=== PATIENT | male | born 1990 | race Caucasian/White ===

== ENCOUNTER 2023-11-18 09:25 | Outpatient (OUT) | payer MEDICARE, MEDICAID, SELFPAY ==
[2023-11-18 10:40] LABS: Basophils Absolute Auto 0.1 10^3/uL (0.0-0.1); Basophils Percent Auto 1.3 % (0.2-2.0); Eosinophils Absolute Auto 0.1 10^3/uL (0.0-0.7); Eosinophils Percent Auto 0.9 % (0.9-7.0); Hemoglobin 14.2 g/dL (14.0-18.0); Immature Granulocytes Abs Auto 0.04 10^3/uL (0.00-0.03); Immature Granulocytes Pct Auto 0.7 % (0.0-0.5); Lymphocytes Absolute Auto 1.5 10^3/uL (1.2-3.8); Lymphocytes Percent Auto 26.6 % (20.5-60.0); Mean Corpuscular HGB Conc 33.8 g/dL (29.9-35.2); Mean Corpuscular Hemoglobin 30.8 pg (25.9-34.0); Mean Corpuscular Volume 91.1 fL (80.0-94.0); Monocytes Absolute Auto 0.5 10^3/uL (0.3-0.8); Monocytes Percent Auto 9.6 % (1.7-12.0); Neutrophils Absolute Auto 3.4 10^3/uL (1.4-6.5); Neutrophils Percent Auto 60.9 % (43.0-75.0); Platelet Count 282 10^3/uL (150-450); Red Blood Count 4.61 10^6/uL (4.70-6.10); Red Cell Distribution Width 14.1 % (11.0-15.0); White Blood Count 5.6 10^3/uL (4.0-11.0)
== END 2023-11-18 09:26 | disposition home or self-care (01) ==
LOC: PST 09:29
PROVIDERS: PCP Family Medicine; Visit Provider Otolaryngology
DX: Z01.812 Encounter for preprocedural laboratory examination (principal); H61.23 Impacted cerumen, bilateral
CPT/HCPCS: 85025

== ENCOUNTER 2023-11-29 06:46 | Day surgery (SDC) | payer MEDICARE, MEDICAID, SELFPAY ==
[2023-11-18 10:28] VITALS: BP 110/67; PULSE 68; RESP 20; TEMP 36.8; O2SAT 100; BMI 24.6
[2023-11-29] VITALS (9 sets, daily range): BP systolic 95–108; BP diastolic 53–79; PULSE 54–66; RESP 12–20; TEMP 36.1–36.3; O2SAT 96–100
--- NOTE | 2023-11-29 | OP_ITS ---
OPERATION DATE: 11/29/2023 SURGEON: Libby Becker M.D. PREOPERATIVE DIAGNOSIS: Cerumen impaction. POSTOPERATIVE DIAGNOSIS: Cerumen impaction. PROCEDURE: Bilateral removal of cerumen. ANESTHESIA: General mask. COMPLICATIONS: None. FINDINGS: Bilateral cerumen impactions and right tympanostomy tube in place and patent. INDICATIONS: This 33-year-old man with Down syndrome presented with a cerumen impaction, and he was unable to tolerate debridement in the office. PROCEDURE: Patient identified in the holding area and taken back to the OR where he was placed in the supine position. After induction of general anesthesia by mask, the right ear was approached with the otomicroscope and cerumen cleaned from the canal using a cerumen curette. Attention was turned to the left ear and the same procedure performed. The patient was the awakened and taken to the recovery room in good condition. SUZANNA
--- OUTSIDE RECORDS SUMMARY | 2023-11-29 06:49 | XMS_ITS | CCD ---
Author Name Unknown Address [address] [place] [address] Organization [facility] Care Team Providers Care Drafter Cartographic Name Role Phone UNKNOWN, PROVIDER Unavailable Unavailable UNKNOWN, PROVIDER Unavailable Unavailable SELF, REFERRED Unavailable Unavailable SELF, REFERRED Unavailable Unavailable NC Unavailable Unavailable UNKNOWN, PROVIDER Unavailable Unavailable NC Unavailable Unavailable BRYN COTO Unavailable Unavailable Unavailable Primary Care Provider Unavailabl e PROVIDER, UNKNOWN Attending Unavailable PROVIDER, UNKNOWN Admitting Unavailable Darrin Rose Primary Care Provider UnavailDARRIN Lora Referring Unavailable DARRIN ROSE Primary Care Unavailable TIMPAYAL, DR HOANG Consulting Unavailable TIMMIS, DR HOANG Attending Unavailable TIMMIS, DR HOANG Admitting Unavailable [facility] Primary Care Unava ilable NATE II, AUBREY Consulting Unavailable FILUTZE, SHANTEL Consulting Unavailable TIMMIS, DR HOANG Admitting Unavailable TIMMIS, DR HOANG Consulting Unavailable TIMMIS, DR HOANG Attending Unavailable REQUEST, DR NONE LISTED Primary Care Unavaila MIKAELA Marti Consulting Unavailable TIMMIS, DR HOANG Admitting Unavailable TIMMIS, DR HOANG Consulting Unavailable TIMMIS, DR HOANG Attending Unavailable [facility] Primary Care Unava ilable KARLI DAVIS Consulting Unavailable TIMMIS, DR HOANG Admitting Unavailable TIMMIS, DR HOANG Consulting Unavailable TIMMIS, DR HOANG Attending Unavailable REQUEST, DR NONE LISTED Primary Care Unavaila ble SUSAN, KARLI Consulting Unavailable Unavailable Primary Care Provider Unavailjeremias e LIBBY GAITAN Referring Unavailable DARRIN ROSE Primary Care Unavailable Darrin Rose MD Primary Care Provider LIBBY GAITAN Attending Unavailable DARRIN ROSE Referring Unavailable LIBBY GAITAN Attending Unavailable Allergies Allergy Classification Reported Allergen(s) Allergy Type Date of Onset Reaction(s) Facility (2 sources) cefaclor; Translations: [CECLOR] Drug Allergy 7 [facility] (6 sources) Cefaclor; Translations: [CEFACLOR] Drug Allergy 7 Hives, Rash [facility] (6 sources) Cephalosporins (Antibiotic); Translations: [CEPHALOSPORINS] Propensity to adverse reactions to drug 3 Rash [facility] Medications Current Medications Medication Drug Class(es) Dates Sig (Normalized) Sig (Original) Multiple Vitamins-Minerals (THERAPEUTIC MULTIVITAMIN-MINERALS ) tablet (1 source) take 1 tablet by filiberto th once daily Multiple Vitamins-Minerals (THERAPEUTIC MULTIVITAMIN-MINERALS ) tablet Take 1 tablet by mouth daily 0 Active therapeutic multivitamin-minerals (Theragran-M) tablet (4 sources) take 1 tablet by filiberto th in the morning therapeutic multivitamin-minerals (Theragran-M) tablet Take 1 tablet by mouth in the morning. 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, unspecified] Onset: 2 09-01-2023 Chronic Immunity disorders (1 source) Di Ag's syndrome; 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] Onset: 2 Chronic Other congenital anomalies (3 sources) Marfan's syndrome, unspecified; 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, unspecified] Onset: 7 Chronic Other congenital anomalies (5 sources) Anomaly of chromosome pair 21; 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, unspecified] Onset: 8 07-25-2018 Chronic Other congenital anomalies (1 source) Down syndrome, unspecified; Translations: [DOWN SYNDROME UNSPECIFIED] Onset: 2 Chronic Other ear and sense organ disorders (4 sources) Bilateral hearing loss; Translations: [Unspecified hearing loss, bilateral] Onset: 3 09-01-2023 Chronic Other ear and sense organ disorders (4 sources) Hearing loss; Translations: [Unspecified hearing loss, unspecified ear] Onset: 2 09-01-2023 Chronic Other ear and sense organ disorders (5 sources) Impacted cerumen, right ear; Translations: [IMPACTED CERUMEN RIGHT EAR] Onset: 3 Episodic Other ear and sense organ disorders (2 sources) Impacted cerumen of bilateral ears; Translations: [Impacted cerumen, bilateral] 11-02-2023 Episodic Other gastrointestinal disorders (1 source) Dysphagia, pharyngoesophageal phase; Translations: [Dysphagia, pharyngoesophageal phase] Onset: 4 Episodic Other gastrointestinal disorders (2 sources) Oropharyngeal dysphagia; Translations: [Dysphagia, oropharyngeal phase] 11-02-2023 Episodic Otitis media and related conditions (6 sources) Other disorders following mastoidectomy, left ear; Translations: [Other disorders following mastoidectomy, bilateral ears] Onset: 2 Episodic Unclassified (2 sources) Unknown / UNK(Unknown) Onset: 7 Past or Other Problems Problem Classification Problem Date Documented Da te Episodic/Chronic Aortic; peripheral; and visceral artery aneurysms (1 source) Aortic root dilatation; Translations: [Thoracic aortic ectasia] Onset: 11-21-2017 Resolved: 07-25-2018 07-25-2018 Chronic Other congenital anomalies (1 source) Marfan's syndrome; Translations: [Marfan's syndrome, unspecified] Onset: 11-21-2017 Resolved: 07-19-2018 07-19-2018 Chronic Other ear and sense organ disorders (1 source) Otorrhea, right ear; Translations: [OTORRHEA RIGHT EAR] Onset: 03-29-2022 Episodic Other ear and sense organ disorders (4 sources) Impacted cerumen; Translations: [Impacted cerumen, unspecified ear] Onset: 06-29-2022 Resolved: 09-01-2023 09-01-2023 Episodic Viral infection (4 sources) Plantar wart of left foot; Translations: [Plantar wart] Onset: 06-29-2022 09-01-2023 Episodic Results Test Name Value Interpretation Reference Range Facility FL SWALLOW MOTILITY FUNCTION on 10-05-2023 FL SWALLOW MOTILITY FUNCTION FL SWALLOW MOTILITY FUNCTION CLINICAL INFORMATION: Difficulty swallowing. Oropharyngeal dysphagia TECHNIQUE/PROCEDURE: Speech pathologist was present for the duration of the procedure. Various consistencies of barium containing substances were provided with lateral view. Reference air kerma: 2.2 mGy IMPRESSION: 1. No evidence of aspiration. Intermittent trace penetration with thin consistency by straw. 2. For further details and diet recommendations please refer to speech pathology report. Finalized by Sohail Chanel MD on 10/05/2023 9:55 AM Normal [facility] CBC AUTO DIFFon 11-04-2022 BASO # 0.1 103/ul Normal 0.0-0.1 [facility] Comment on above: Performed By: #### C BC #### [facility] [address] [place] [address] Dr. Amanda Dillon Basophils/100 WBC (Bld) 1.4 % Normal 0.2-2.0 [facility] Comment on above: Performed By: #### C BC #### [facility] [address] [place] [address] Dr. Amanda Dillon EO # 0.0 103/ul Normal 0.0-0.7 [facility] Comment on above: Performed By: #### C BC #### [facility] [address] [address] [address] Amanda Dillon Eosinophils/100 WBC (Bld) 0.6 % Critically low 0.9-7.0 [facility] Comment on above: Performed By: #### C BC #### [facility] [address] [place] [address] Dr. Amanda Dillon Erythrocyte distribution width (RBC) [Ratio] 14.2 % Normal 11.0-15.0 [facility] Comment on above: Performed By: #### C BC #### [facility] [address] [place] [address] Dr. Amanda Dillon Hematocrit (Bld) [Volume fraction] 42.6 % Normal 42.0-54.0 [facility] Comment on above: Performed By: #### C BC #### [facility] [address] [place] [address] Dr. Amanda Dillon Hemoglobin (Bld) [Mass/Vol] 14.9 g/dL Normal 14.0-18.0 [facility] Comment on above: Performed By: #### C BC #### [facility] [address] [place] [address] Dr. Amanda Dillon IG # 0.07 10e3/ul Critically high 0.00-0.03 [facility] Comment on above: Performed By: #### C BC #### [facility] [address] [place] [address] Dr. Amanda Dillon IG % 1.1 % Critically high 0.0-0.5 [facility] Comment on above: Performed By: #### C BC #### [facility] [address] [place] [address] Dr. Amanda Dillon LYMPH # 1.5 103/ul Normal 1.2-3.8 [facility] Comment on above: Performed By: #### C BC #### [facility] [address] [place] [address] Dr. Amanda Dillon Lymphocytes/100 WBC (Bld) 23.5 % Normal 20.5-60.0 [facility] Comment on above: Performed By: #### C BC #### [facility] [address] [place] [address] Dr. Amanda Dillon MANUAL DIFF REQ NO Normal [facility] Comment on above: Performed By: #### C BC #### [facility] [address] [place] [address] Dr. Amanda Dillon MCH (RBC) [Entitic mass] 31.1 pg Normal 25.9-34.0 [facility] Comment on above: Performed By: #### C BC #### [facility] [address] [place] [address] Dr. Amanda Dillon MCHC (RBC) [Mass/Vol] 35.0 g/dL Normal 29.9-35.2 [facility] Comment on above: Performed By: #### C BC #### [facility] [address] [address] [address] Amanda Dillon MCV (RBC) [Entitic vol] 88.9 fL Normal 80.0-94.0 [facility] Comment on above: Performed By: #### C BC #### [facility] [address] [address] [address] Amanda Dillon MONO # 0.6 103/ul Normal 0.3-0.8 [facility] Comment on above: Performed By: #### C BC #### [facility] [address] [address] [address] Amanda Dillon Monocytes/100 WBC (Bld) 9.1 % Normal 1.7-12.0 [facility] Comment on above: Performed By: #### C BC #### [facility] [address] [address] [address] Amanda Dillon NEUT # 4.2 103/ul Normal 1.4-6.5 [facility] Comment on above: Performed By: #### C BC #### [facility] [address] [address] [address] Amanda Dillon Neutrophils/100 WBC (Bld) 64.3 % Normal 43.0-75.0 [facility] Comment on above: Performed By: #### C BC #### [facility] [address] [address] [address] Amanda Dillon Platelet mean volume (Bld) [Entitic vol] 9.1 fL Critically low 9.5-13.5 [facility] Comment on above: Performed By: #### C BC #### [facility] [address] [address] [address] Amanda Dillon PLT 267 103/ul Normal 150-450 [facility] Comment on above: Performed By: #### C BC #### [facility] [address] [address] [address] Amanda Dillon RBC 4.79 106/ul Normal 4.70-6.10 [facility] Comment on above: Performed By: #### C BC #### [facility] [address] [place], [place] [address] Dr. Amanda Dillon WBC 6.5 103/ul Normal 4.0-11.0 [facility] Comment on above: Performed By: #### C BC #### [facility] [address] [place], [place] [address] Dr. 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 Normal cardiac structure. 2. Normal cardiac dimensions with normal biventricular systolic function. 3. No evidence of aortic root dilation 4. No obvious evidence of congenital cardiac abnormalities. Compared to the previous study, no significant change seen. Signature Procedure Type of Study Pediatric/Congenital TTE Procedure:2D Limited/Doppler/Color Flow Map. Procedure Date Date: 07/13/2022tart: 01:55 PM Comments: Darrin Rose (PCP) Aortic root dilation Technical Quality: Good visualization Probe:5.5 MHZ. Patient Status: Outpatient HR: 62 bpmBP: 122/69 mmHg Findings Situs/Connections Normal cardiac and visceral situs. Pulmonary Veins Normal pulmonary venous return. Systemic Veins Normal systemic venous return. Atrial Septum No obvious evidence of atrial level shunting. Atria Normal atrial sizes. AV Valves Normal atrioventricular valve without stenosis. Trivial tricuspid valve regurgitation. Ventricular Septum No obvious evidence of ventricular level shunting. Ventricles Normal ventricular sizes, without evidence of hypertrophy. The biventricular systolic function is normal. Aortic Valve Normal aortic valve without evidence of stenosis and/or regurgitation. Pulmonic Valve Normal semilunar valve without stenosis or significant regurgitation. Coronary Arteries Both origins of the coronaries are visualized (previous study). Aorta Left-sided aortic arch with normal branching and no evidence of coarctation (previous study). Pulmonary Arteries The main and branch pulmonary arteries are normal sized without peripheral stenosis (previous study). Miscellaneous Normal aortic root dimension. Valves Tricuspid Valve Peak velocity:0.66 m/s Pulmonic Valve Peak velocity: 1 m/s Peak gradient: 4 mmHg Mitral Valve Peak gradient: 3.84 mmHg Peak E-Wave: 0.98 m/s Aortic Valve Annulus:18 mm Peak velocity: 0.91 m/s Peak gradient: 3.31 mmHg Structures Left Atrium LA dimension: 21 mm Left Ventricle Diastolic dimension: 41 mm Systolic dimension: 28 mm Septum diastolic: 8 mm PW diastolic: 7 mm EF calculated: 66.5 % FS: 31.7 % LVEDV:68.4 ml EF Teicholz:60.2 % LVESV:22.9 ml LVEDV index:40 ml/m^2 LVESV index:13 ml/m^2 Right Ventricle Diastolic dimension: 23 mm MHPN STV CPACS Mary Anne Heller MD - 07/13/2022 Pediatric/Congenital Transthoracic Echocardiography (TTE) Report Demographics Patient Name LANEY Guthrie Date of Study 07/13/2022 Date of 1990 Gender Male Age 32 year(s) Race Room Number [id number]^DANI Height: 66.54 inch, 169 cm Corporate ID [id number] Weight: 138.89 pounds, 63 # kg Patient Acct [id number] BSA: 1.72 m^2 BMI: 22.06 # kg/m^2 MR # [id number] 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 Normal cardiac structure. 2. Normal cardiac dimensions with normal biventricular systolic function. 3. No evidence of aortic root dilation 4. No obvious evidence of congenital cardiac abnormalities. Compared to the previous study, no significant change seen. Signature Procedure Type of Study Pediatric/Congenital TTE Procedure:2D Limited/Doppler/Color Flow Map. Procedure Date Date: 07/13/2022tart: 01:55 PM Comments: Darrin Rose (PCP) Aortic root dilation Technical Quality: Good visualization Probe:5.5 MHZ. Patient Status: Outpatient HR: 62 bpmBP: 122/69 mmHg Findings Situs/Connections Normal cardiac and visceral situs. Pulmonary Veins Normal pulmonary venous return. Systemic Veins Normal systemic venous return. Atrial Septum No obvious evidence of atrial level shunting. Atria Normal atrial sizes. AV Valves Normal atrioventricular valve without stenosis. Trivial tricuspid valve regurgitation. Ventricular Septum No obvious evidence of ventricular level shunting. Ventricles Normal ventricular sizes, without evidence of hypertrophy. The biventricular systolic function is normal. Aortic Valve Normal aortic valve without evidence of stenosis and/or regurgitation. Pulmonic Valve Normal semilunar valve without stenosis or significant regurgitation. Coronary Arteries Both origins of the coronaries are visualized (previous study). Aorta Left-sided aortic arch with normal branching and no evidence of coarctation (previous study). Pulmonary Arteries The main and branch pulmonary arteries are normal sized without peripheral stenosis (previous study). Miscellaneous Normal aortic root dimension. Valves Tricuspid Valve Peak velocity:0.66 m/s Pulmonic Valve Peak velocity: 1 m/s Peak gradient: 4 mmHg Mitral Valve Peak gradient: 3.84 mmHg Peak E-Wave: 0.98 m/s Aortic Valve Annulus:18 mm Peak velocity: 0.91 m/s Peak gradient: 3.31 mmHg Structures Left Atrium LA dimension: 21 mm Left Ventricle Diastolic dimension: 41 mm Systolic dimension: 28 mm Septum diastolic: 8 mm PW diastolic: 7 mm EF calculated: 66.5 % FS: 31.7 % LVEDV:68.4 ml EF Teicholz:60.2 % LVESV:22.9 ml LVEDV index:40 ml/m^2 LVESV index:13 ml/m^2 Right Ventricle Diastolic dimension: 23 mm Drawn to Scale Phone: Drawn to Scale Phone: CBC AUTO DIFFon 03-17-2022 BASO # 0.1 103/ul Normal 0.0-0.1 [facility] Comment on above: Performed By: #### C BC #### [facility] [address] [place] [address] Dr. Amanda Dillon Basophils/100 WBC (Bld) 1.3 % Normal 0.2-2.0 [facility] Comment on above: Performed By: #### C BC #### [facility] [address] [place] [address] Dr. Amanda Dillon EO # 0.1 103/ul Normal 0.0-0.7 [facility] Comment on above: Performed By: #### C BC #### [facility] [address] [place] [address] Dr. Amanda Dillon Eosinophils/100 WBC (Bld) 0.9 % Normal 0.9-7.0 [facility] Comment on above: Performed By: #### C BC #### [facility] [address] [place] [address] Dr. Amanda Dillon Erythrocyte distribution width (RBC) [Ratio] 14.3 % Normal 11.0-15.0 [facility] Comment on above: Performed By: #### C BC #### [facility] [address] [place] [address] Dr. Amanda Dillon Hematocrit (Bld) [Volume fraction] 44.2 % Normal 42.0-54.0 [facility] Comment on above: Performed By: #### C BC #### [facility] [address] [place] [address] Dr. Amanda Dillon Hemoglobin (Bld) [Mass/Vol] 14.8 g/dL Normal 14.0-18.0 [facility] Comment on above: Performed By: #### C BC #### [facility] [address] [place] [address] Dr. Amanda Dillon IG # 0.03 10e3/ul Normal 0.00-0.03 [facility] Comment on above: Performed By: #### C BC #### [facility] [address] [place] [address] Dr. Amanda Dillon IG % 0.5 % Normal 0.0-0.5 [facility] Comment on above: Performed By: #### C BC #### [facility] [address] [place] [address] Dr. Amanda Dillon LYMPH # 1.4 103/ul Normal 1.2-3.8 [facility] Comment on above: Performed By: #### C BC #### [facility] [address] [place] [address] Dr. Amanda Dillon Lymphocytes/100 WBC (Bld) 26.0 % Normal 20.5-60.0 [facility] Comment on above: Performed By: #### C BC #### [facility] [address] [place] [address] Dr. Amanda Dillon MANUAL DIFF REQ NO Normal [facility] Comment on above: Performed By: #### C BC #### [facility] [address] [place] [address] Dr. Amanda Dillon MCH (RBC) [Entitic mass] 30.5 pg Normal 25.9-34.0 [facility] Comment on above: Performed By: #### C BC #### [facility] [address] [place] [address] Dr. Amanda Dillon MCHC (RBC) [Mass/Vol] 33.5 g/dL Normal 29.9-35.2 [facility] Comment on above: Performed By: #### C BC #### [facility] [address] [place] [address] Dr. Amanda Dillon MCV (RBC) [Entitic vol] 91.1 fL Normal 80.0-94.0 [facility] Comment on above: Performed By: #### C BC #### [facility] [address] [place] [address] Dr. Amanda Dillon MONO # 0.5 103/ul Normal 0.3-0.8 [facility] Comment on above: Performed By: #### C BC #### [facility] [address] [place] [address] Dr. Amanda Dillon Monocytes/100 WBC (Bld) 9.2 % Normal 1.7-12.0 [facility] Comment on above: Performed By: #### C BC #### [facility] [address] [address] [address] Amanda Dillon NEUT # 3.4 103/ul Normal 1.4-6.5 [facility] Comment on above: Performed By: #### C BC #### [facility] [address] [id number] [address] Amanda Dillon Neutrophils/100 WBC (Bld) 62.1 % Normal 43.0-75.0 [facility] Comment on above: Performed By: #### C BC #### [facility] [address] [place] [address] Dr. Amanda Dillon Platelet mean volume (Bld) [Entitic vol] 9.1 fL Critically low 9.5-13.5 [facility] Comment on above: Performed By: #### C BC #### [facility] [address] [place] [address] Dr. Amanda Dillon PLT 269 103/ul Normal 150-450 [facility] Comment on above: Performed By: #### C BC #### [facility] [address] [address] [address] Amanda Dillon RBC 4.85 106/ul Normal 4.70-6.10 [facility] Comment on above: Performed By: #### C BC #### [facility] [address] [place] [address] Dr. Amanda Dillon WBC 5.5 103/ul Normal 4.0-11.0 [facility] Comment on above: Performed By: #### C BC #### [facility] [address] [place] [address] Dr. Amanda Dillon Progress Noteson 01-20-2022 Lidar Technician Authentication Interface Message Text Special needs pt presents with his mother. He cannot tolerate an exam or treatment in the clinic. He has had work done under sedation previously at other offices. Dr. Pepper did the exam. Pt has many retained primary teeth. No pain is noted at this time. LG is mom, Bella Ramishman: [phone] Tx request sent. HARDWARE IN[employer]ATION [employer]ATOR [address] [place]; OR ----- Signed on Thursday, January 20, 2022 at 3:57:46 PM ----- ----- Provider: Andre - Kj Seals DDS -- Clinic: [facility] ----- Normal [employer] Coding Summary.on 03-10-2021 Coding Summary. CD:[id number] Gh0bW w+PGhlYWQ+AS9NIXFpY03lmKZ luJ5EY6wPBF2DXDMEDRCPYH9L ZE2tvXZ4XHoaK4QnwnWn UtpkcDTgVN98RSz1DWI6xCmmR SbozC6qfYXzE1x5UvWvTT24vP 82JEzqRJVwFgE3SwDygslnsFK y Z7vhJnZssDPhMfr+PHRhYmxlI HdpZHRoPScxMDAlJyBzdHlsZT 5oSx3gRRJuTHBhyTsiiEOfRpO j p5koFJBgDKcuIC9qlUnoC0Ebx YO9ULAdp6p3Ed26pKY+PHRkIH X0fHpmOCwmc638LfUxi2hnQER 3 pOPiCTqvTGJ9F06wl7B5HTSfS DNyIHK9xCL4fT8mrRkswwfeN6 EvwRRwUiV9ELK7xJWkhP6ynHy n dwfccV0yMji+P30PZC4TFISKU X4FQqd8X9VxCaqjmXL+PC90YW AsAU02uGDgnQXus1wvwTc3QmG w KFCwOEN0rVflLNjrh9PpKMAwV 80qzIQyq6R4UNAecQuzuQPuBc HptYB1gZ9rWIbdgcqdb4omzvo n Fwzlw2pdzr96oM54E05wGVtjZ XJyCEW4SZGoUWWqlJsqbf1klB 9wIi8+YMmfl1vqc1fkbEh9OsY w UKGyioHarSzmPSB4l3UyVm57U 9HgbImml2GoYzt1mg22zBXno0 R6uET7XBfxKIJfhM5pNEjlNqA 6 DLWiJxBnoX64oLSlJBggAj0qv DsytSayXO7yOKFprtvaPNVoqC 8dJQJmzKIpcSksPM3eIKDbvll m s247TgBvIUS6CWOrrLSpW5Gei S5bFcFhNVCbOCIbW0EglSZtKR wkG986AWisDiW5CTUpjlCqQ5G s OFBcxDuoKoI3h7H0Up1Tm9Qcm xgkWPI7WAlrOVL7QyBhIwWhPb C3W6OqMvx4RLNkpRnrBC3tK4H h EGQgdyjmpsixaLW8MZJcPAVvf S30mTGnWRlmDe4wi8G3t387DT KoJQMfpZ20Kn7vfNkvSQHgfSC U qM8vmiahz0bkqikkYbJzBRSlI Wu8RXq5PJBvqGunWoQsTMU4Fj W4TDL5cWWqnF9zxAplksyelO2 w Oyc+E67ydP4qLYW2EHS1wthmH PPtswZpQU64DA99B3LyKmybgD FibGU+INElqbEniCsqPS6yKkZ j o3pnf1OuARqyV5ZaXSGvALvgJ hj6YRCoRMF0oSS3tN0sHHHbQB vpb7S3uAT1R2SnxrCctf9bo0y s FXAnTTcjX82dqREak2Y5VLOaw XI5KYBvhZdaOjTmaH80Ovy+PG BwlFyzo6IzTnhwn1mhm0kowDw 9 NuRxJWKbsuCkmHirEVJ1s6KwQ d86F25wBJdgLCWaZDQaVAIuGY OvcSjqln0trA9zFd0+PGNvbCB 3 kYF0pS9dITYpIzI0UNzpO563K pHycQDrRwweo6ggk6neyBg1Ju ZgQIOgqhJorPtxZGB8v0KzXl0 8 R07vGKmxVDYaIUSlMUDdYSHsj Bwfog0pnE9hCf5+PD4gi5lxeg 80tH20aQQ+BTRtNOK8gWkgUBd w ZBLyvD8uKKsfXeV6BGPvBtJbp K58aAIrLUmeYj9imTtmkUgrLO 9kJPZwriozx446DuQzb3klPTC w zADnFRdrKJU6E41gb4A1UIPsE BUbCFH7kAN4zL5qfMdlygyvzO SwkFalxpIseAgoODhiPSrgI21 6 IHRvcDsnPlBhdGllbnQgTmFtZ Iy6J5JmPyo8GTLqlYeoUW2dwI XcJUxvZf7zbKguaLmjOR8eTSD p xfeoj242ReRwt9qiZROquCNmA AyaBCX2H38ra4L1FVLjTMDfXT V8hRP9cZ4owPnhxoomkHJauSq g vcYjyBufWGapWLexI835EVHxv IqjCwJzlfDqHOJfnMH1WZ63AW 45gOSkb4F3dQG8X0NuKJEfzwk t mpsuqNJ1WYGsELSasW50Vj8fe IydWy6bZVMiVHP2ZBHehNYxF1 HlpA0pOjQqYIGtQLVeM8JuwZW t ZDpqE465UFucGrA4YUIfxaWrE 9HjUSZkeUpwCaK1p7G7Lm0US2 G1EM16KM41aOXtj8B9bMH2C9R h DNFjjumqohikhUT7BGGnCBVmz C64Kx8baYcjOk2xWCHiVUQ5AG MweBTfB5LweK1ePcBbOAYgFUW w C3NthBGcDAdiT916KXrcPlJ3N GEteiHxR9YyEKXxzWghIsL5z1 O9Cl9PBKk8EB62VL80pGGet2P 5 wLT9Y9EbBROrndpdlgywqNS4J AIpCZYwpI17Kf8grFzcDj0cYW IjPGJ8HVTnkSIiK3GboE3tRyU j MSSzUQWhG7ZvhBGzIEpoC542T RmqUiO8GTTpcnNkU3IfXHHvlQ jpIaG5m8L7Gu3ZXJDaMY96SVI 5 mMH5RF36LH64R7DzQevitMOjr +PHRhYmxlIHdpZHRoPScxMD LfDfTueHavNF4yLh2sQIWkAPC v iSmawWTsAzQrj9piNMZpJJvvS U1lpUduS1SylNV0XRWic2e5Yv 58X40tC1UsiHL+BMOjvJI5uDG 0 sN2sMkDpUdY7GTtrN917AeHsd DQiGorzb5frr7tjgXy8JgV5EM YatuRkiFhqYDT7u5XpAh34F94 s IHdpZHRoPSIxNSUiIHZhbGlnb m7ijN9uMd4+JKQpuIE8zMW9eX 2pGmWxMgL3IVwxP258HoZgeHL v Cokzr6fiq0bowAq2EkRjJZAhe aNhjThoTXL3a5TcFc22U2LetY ggk7TyXcn4cu55hHLlb8Y1aHV 9 Y5KuTVPnbhqcjBLrvBljHD7oK CPksasqMJGavV5mDHFgH5l0Uc SyIjH7YKeqY4UzvaB9XICavNP g KZznAZA8G84qq9Y0UGSoGNHkQ ZY8kJS0yR3vkMxoaaqniSNetK ciyqXmlRopLCswTQewH898EVT v dFkgBZAkhT9nDOQhxIKtiSnzA X3pEOGdxwscRpcTLXMJWPBTXF AUTLUQGS9cLctcmQI+PHRkIHN 0 xEqzHUfyAFFdhY0sVKXwZ5p4Z iOmDrS0PQabH0UkXWKiohqdBl 39iG8kWzRkYhZ3WPjmX9ZlzzT 6 VNZdsVSxXIxyDCW8G87sj2D6R OElLDGlFFE3mTI0aU7riBzttb ogbGVmdDsgdmVydGljYWwtYWx p Y433EYBmoRccRyHjFuRqRyQ1L Er5I9PhMlu1OOKjcFlvSU0dhR XjTIapGz9ktWdtrZqrNB2wGJT p lpzkEPNhwT4jKOAkqXJqyYndE E3rETErdcgpb685AnKiWEE5DR ZgbJRpI1YcrN8jRxYzOWVdUTE w C0PuwHNvPOjdI012INdmEuP9Q PRiuvCsH2FaMCIauImvJsB8e6 M0Qp9uIJYHJATbxjdosBD+PHR k XJH7dDckOMpqVJAhyC3lYDQuX 6z8UgWqOgQ1SWakS5QyHIBauj ppVx45oH0aKmIxFuG0ULtnA9T v eoW9QFUfuCPlTHaoBZD2P13ix 0W7OLPqZKInGII3iKP2qR9xqX lnbjogbGVmdDsgdmVydGljYWw t QAdjX486QKSonRevIs4xsLH9X 1KySqs0UOGfwBvuVS8wbMStNC fhWo8idJzkeJnbFS3zVTRlrwd w ZJOzzZ4sDEUegGHhqHhgSB0wG UVtcvzdy065AsPlGAR8GPDckL HiZ1OfvJ0dQqChDCCqZWVuP4I l kBCiRKknG945GRjfIrZ1QWPvx fSvB4EzVRChpJheHxK2a3K8Zj 1GpNL0mGD2v9O8N2XjzPPePLP 5 FZW9eyhizmm6F6NuUfqcsDC+P S23TLIdMO85hUPdqTNiw3vrpN l9PoByXKOzHWK5mDwsRBsdk0X k YOLcZ16thQXps7Z5ZZAwxBxya EZqIvUnxNA8nY8bFSomqjckm6 wffgrrTyjkc6dkyv80nM80O25 s IHdpZHRoPSIzMCUiIHZhbGlnb f2ghU4yCd6+PNLqrIH9bIC1oR 1vYzJyUtO0UOmlD400HmHwfFV v Mlsys4ovb5ectOa8PpZyCKZyi oFciAzfLAM4w9GiNt33B25fAM dpZHRoPSIyMCUiIHZhbGlnbj0 i qA2gTl0+IN7yj3fbom74sT44n HI+OGUeJWU4nDnpXCwyHOLboC 3aISlwTcK4QNPsLxFqtI43nEP k ARqcQk4ttOwoqUcnBF8bOHNgd rnnm583LtKey5cgMEEkxZVxVT rdSZZ7O28ju6I0DSDyUGVyXUC 7 rZU8vM2upEltskbznHXnrNkst aAojNncHZxqJRduP980KDQblT jjUqXfaKRrA7aoekXFAJ2hJiq v dGQ+JWGbWFH2xVqhNTklQJNpg E3hUPEaY5x5AzSgPuT6ATbtL9 HpfsG3VRNlnBXgNJEwrDSMvK0 l agqch9dkruszEqJgZZMuZAk7A Ck8HKJrnSjcYdXlLIR0AnS1LF J8mNGitZ2dfTxddhsowA9iJth + RklOOjwvdGQ+AQOzSYL8iAubO AieNDRwuZ1xQAUpY9v2HzQsDr D1JHozK5JldpF7CXPypEFtXLU w aQSWeT5swvlsu4nmnygcOdGwH DMzHNl3YJc7TLWvhIkaHbNxKN L8BdF8CVJ4sAAtwM9wgLxpomz g nB5bSkr+TVJOOjwvdGQ+PHRkI OJ2fXveHNqsXHBdmK7dEYLsI9 c8LqWhTaB1NOxgU3VdrcA2IFU v sUWiBGXvlXAUuW4fbxhtt7lfz npaLdVsDYXnVIw0YVc5HCBotI biInOmSGW3UeC7ZES9cJOesZ6 h mYhfduzlfT7fZqx+NTX0MTZ4R C74EL68G1XmErszbXQnnFI+PH RhYmxlIHdpZHRoPScxMDAlJyB z dHls (more content not included)... Normal [facility] Main OR Intraoperative Recor don 03-09-2021 Main OR Intraoperative Record IntraOp Document Type FT Summary Primary Physician: Libby Gaitan MD Finalized Date/Time: 03/09/21 08:51:09 Pt. Name: LANEYRACHEL D.O.B./Sex: 1990 Male Med Rec #: [id number] Physician: Libby Gaitan MD Financial #: [id number] Pt. Type: A Room/Bed: [place] [address] Admit/Disch: 03/05/21 06:22:00 - 03/05/21 10:30:00 Institution: Case Times FT Entry 1 Patient Times In Room 03/05/21 08:30:00 Out Room 03/05/21 09:02:00 Procedure Times Start 03/05/21 08:40:00 Stop 03/05/21 08:55:00 Anesthesia Times Start 03/05/21 08:30:00 Stop 03/05/21 09:02:00 Last Modified By: Flora Lau RN 03/05/21 09:02:09 General Comments: 03/09/2021 Chart opened to review and send charges. Gilmar GRIFFITH. Case Attendance FT Entry 1 Entry 2 Entry 3 Case Attendee Shanti Villarreal MD, Flora Falk RN Role Performed Anesthesiologist Surgeon - Primary Orthodontic Laboratory Technician - Primary Protective Signal Repairer Time In 03/05/21 08:30:00 03/05/21 08:38:00 03/05/21 08:30:00 Time Out 03/05/21 09:02:00 03/05/21 09:00:00 03/05/21 09:02:00 Procedure MYRINGOTOMY W/ MYRINGOTOMY W/ MYRINGOTOMY W/ INSERTION OF INSERTION OF INSERTION OF TUBES(Bilateral) TUBES(Bilateral) TUBES(Bilateral) Comments dr newton supervising Last Modified By: Sid RN, Flora Lau RN, Flora Lau RN, Flora Delgado 03/05/21 09:02:20 03/05/21 09:02:20 03/05/21 09:02:20 Entry 4 Entry 5 Case Attendee Av MARIE, Niyah Friend CST, Renita Johnson Role Performed Staff - Other Scrub - Primary Time In 03/05/21 08:30:00 03/05/21 08:30:00 Time Out 03/05/21 09:02:00 03/05/21 09:02:00 Procedure MYRINGOTOMY W/ MYRINGOTOMY W/ INSERTION OF INSERTION OF TUBES(Bilateral) TUBES(Bilateral) Comments orientation Last Modified By: Sid RN, Flora Lau RN, Flora Delgado 03/05/21 09:02:20 03/05/21 09:02:20 Perioperative Protocols FT Pre-Care Text: Implements protective measures prior to operative or invasive procedure, confirms identity before the operative or invasive procedure, verifies operative procedure, surgical site, and laterality Entry 1 Procedure(s) MYRINGOTOMY W/ Patient Identity Birthday, ID Band INSERTION OF Verified (select at Check, Other/See TUBES(Bilateral) least 2): Comments Consents / H and P Anesthesia Consent, Operative Site N/A Verified HandP, Surgery/Procedure Marking Verified Consent Surgical Site Yes Laterality Verified Yes Verified Procedure Verified Yes Correct Patient Yes Position Verified Availability Equipment, Medication Prep Dry n/a Verified (If Applicable) PreOp Antibiotic No Time Out Shanti Villarreal, Given Participants Eugenio LONG, Sid Ramon RN, Av Bhatt RN, Phuc Simpson CST, Liarhea E Time Out Complete 03/05/21 08:39:00 Outcomes Met? Yes Last Modified By: Flora Lau RN 03/05/21 08:43:16 Post-Care Text: The patient is free from signs and symptoms of injury caused by extraneous objects General Comments: name, birthdate, allergies and correct procedure verified with mother at bedside prior to procedure. Rocio carmona rn Allergy Information FT Pre-Care Text: Verifies allergies Entry 1 Allergies Reviewed? Yes Outcomes Met? Yes Last Modified By: Flora Lau RN 03/05/21 07:51:04 Post-Care Text: The patient received appropriate medication(s) safely administered during the perioperative period Surgical Procedures FT Entry 1 Procedure Description Procedure MYRINGOTOMY W/ Modifiers Bilateral INSERTION OF TUBES Surgeon Description BILATERAL EAR DEBRIDEMENT of mastoid cavity Primary Procedure Yes Primary Surgeon Libby Gaitan MD Start 03/05/21 08:40:00 Stop 03/05/21 08:55:00 Anesthesia Type General Surgical Service ENT Wound Class 2 - Clean-Contaminated Last Modified By: Flora Lau RN 03/05/21 08:55:31 General Case Data FT Pre-Care Text: Classifies surgical wound, implements aseptic technique, initiates traffic control Entry 1 Case Information OR OR 2 FT Case Level Level 2 Wound Class 2 - Clean-Contaminated Specialty ENT ASA Class 2 Preop Diagnosis routine mastoid cavity Postop Same As Preop No debridement Postop Diagnosis routine mastoid cavity Outcomes Met? Yes debridement Last Modified By: Flora Lau RN 03/05/21 08:56:08 Post-Care Text: The patient is free from signs and symptoms of infection Skin Assessment (Pre Procedure) FT Pre-Care Text: Implements protective measures to prevent skin/ tissue injury due to thermal or mechanical sources Evaluates for signs and symptoms of physical injury to skin and tissue Entry 1 Skin Integrity Intact, [place], Warm, and Skin Abnormality No Dry Outcomes Met? Yes Last Modified By: Flora Lau RN 03/05/21 07:43:56 Post-Care Text: The patient is free from signs and symptoms of injury caused by extraneous objects Patient Positioning FT Pre-Care Text: Identifies physical alterations that require additional precautions for procedure-specific positioning, verifies presence (more content not included)... Normal [facility] Postoperative Documentson Postoperative Documents [id number]#1.00CD:1 27 [facility] Consent for Anesthesiaon Consent for Anesthesia [id number]#1.00CD:1 27 [facility] Discharge Instructionson Discharge Instructions [id number]#1.00CD:1 27 [facility] IntraOperative Documentson 0 03-06-2021 IntraOperative Documents [id number]#1.00CD:1 27 [facility] IntraOperative Documents [id number]#1.00CD:1 27 [facility] Physician Orderon 03-06-2021 Physician Order [id number]#1.00CD:1 27 [facility] Preoperative Documentson Preoperative Documents [id number]#1.00CD:1 27 [facility] H&P Updateon 03-05-2021 H&P Update [id number]#1.00CD: 127 [facility] Inpatient Patient Summaryon 03-05-2021 Inpatient Patient Summary [place] [id number] [facility] Clinical Discharge Instructions PERSON INFORMATION Name: RACHEL DAVISON PHYSICIANS Admitting Physician: Libby Gaitan MD Attending Physician: Libby Gaitan MD PCP: DARIUS HOUSTON MD, DARRIN López Discharge Diagnosis: Cognitive impairment; Encounter for mastoidectomy cavity debridement Comment: PATIENT EDUCATION INFORMATION Instructions: Post Op Patient Instructions - FT (CUSTOM) Medication Leaflets: Follow up: With: Address: When: Libby Gaitan Comments: One year MEDICATION LIST Comment: [facility] Main OR PACU I Recordon 02-17 Main OR PACU I Record PACU Phase I Document Type FT Summary Primary Physician: Libby Gaitan MD Finalized Date/Time: 03/05/21 09:42:43 Pt. Name: RACHEL DAVISON Jerri Wong./Sex: 1990 Male Med Rec #: [id number] Physician: Libby Gaitan MD Financial #: [id number] Pt. Type: A Room/Bed: [facility]/ Admit/Disch: 03/05/21 06:22:00 - Institution: Case Times PACU I FT Pre-Care Text: Identifies barriers to communication and implements measures to provide psychological support Develops individualized plan of care, and ensures continuity of care Maintains patient's dignity and privacy, and maintains patient confidentiality Identifies and reports philosophical, cultural, and spiritual beliefs and values Identifies individual values and wishes concerning care Implements aseptic technique, and administers prescribed antibiotic therapy and immunizing agents as ordered Evaluates postoperative tissue perfusion Implements thermoregulation measures, and monitors body temperature Evaluates postoperative respiratory status Evaluates postoperative cardiac status Evaluates postoperative neurological status Assesses pain control, collaborated in initiating patient-controlled analgesia and implements alternative methods of pain control Verifies allergies, administers prescribed medications and solutions, evaluates response to medications Entry 1 In PACU I 03/05/21 09:03:00 Discharge from PACU 03/05/21 09:33:00 I Outcomes Met? Yes Last Modified By: Mariela Jernigan RN 03/05/21 09:42:16 Post-Care Text: The patient demonstrates knowledge of the expected response to the operative or invasive procedure The patient's care is consistent with the individualized perioperative plan of care The patient's right to privacy is maintained The patient's value system, lifestyle, ethnicity, and culture are considered, respected, and incorporated into the perioperative plan of care The patient participates in decisions affecting his or her perioperative plan of care The patient is free from signs and symptoms of infection The patient has wound/tissue perfusion consistent with or improved from baseline levels established preoperatively The patient is at or returning to normothermia at the conclusion of the immediate postoperative period The patient's respiratory function is consistent with or improved from baseline levels established preoperatively The patient's cardiovascular status is consistent with or improved from baseline levels established preoperatively The patient's cardiovascular status is consistent with or improved from baseline levels established preoperatively The patient demonstrates and/or reports adequate pain control throughout the perioperative period The patient received appropriate medication(s), safely administered during the perioperative period Acuity Level PACU I FT Entry 1 Start Time 03/05/21 09:03:00 Stop Time 03/05/21 09:33:00 Acuity Level Acuity Level I Last Modified By: Mariela Jernigan RN 03/05/21 09:42:30 Finalized By: Mariela Jernigan RN Document Signatures Signed By: Mariela Jernigan RN 03/05/21 09:42 Normal [facility] Main OR PACU II Recordon Main OR PACU II Record PACU Phase II Document Type FT Summary Primary Physician: Libby Gaitan MD Finalized Date/Time: 03/05/21 10:48:55 Pt. Name: SONG DAVISONAMEE Guthrie /Sex: 1990 Male Med Rec #: [id number] Physician: Libby Gaitan MD Financial #: [id number] Pt. Type: A Room/Bed: [place] [address] Admit/Disch: 03/05/21 06:22:00 - Institution: Case Times PACU II FT Pre-Care Text: Identifies barriers to communication and implements measures to provide psychological support and determines knowledge level Develops individualized plan of care, and ensures continuity of care Maintains patient's dignity and privacy, and maintains patient confidentiality Identifies and reports philosophical, cultural, and spiritual beliefs and values Identifies individual values and wishes concerning care administers prescribed antibiotic therapy and immunizing agents as ordered, Evaluates postoperative tissue perfusion Implements thermoregulation measures, and monitors body temperature Evaluates postoperative respiratory status Evaluates postoperative cardiac status Evaluates postoperative neurological status Assesses pain control, collaborated in initiating patient-controlled analgesia and implements alternative methods of pain control Verifies allergies, administers prescribed medications and solutions, evaluates response to medications Entry 1 In PACU II 03/05/21 09:35:00 Discharge from PACU 03/05/21 10:30:00 II Outcomes Met? Yes Last Modified By: Marbella Fields RN 03/05/21 10:48:54 Post-Care Text: The patient demonstrates knowledge of the expected response to the operative or invasive procedure The patient's care is consistent with the individualized perioperative plan of care The patient's right to privacy is maintained The patient's value system, lifestyle, ethnicity, and culture are considered, respected, and incorporated into the perioperative plan of care The patient participates in decisions affecting his or her perioperative plan of care. The patient is free from signs and symptoms of infection The patient has wound/tissue perfusion consistent with or improved from baseline levels established preoperatively The patient is at or returning to normothermia at the conclusion of the immediate postoperative period The patient's respiratory function is consistent with or improved from baseline levels established preoperatively The patient's cardiovascular status is consistent with or improved from baseline levels established preoperatively The patient's neurological status is consistent with or improved from baseline levels established preoperatively The patient demonstrates and/or reports adequate pain control throughout the perioperative period The patient received appropriate medication(s), safely administered during the perioperative period Finalized By: Marbella Fields RN Document Signatures Signed By: Marbella Fields RN 03/05/21 10:48 Normal [facility] Monitor Recordon 03-05-2021 Monitor Record [id number]#1.00CD:1 27 Normal [facility] Monitor Record [id number]#1.00CD:1 27 [facility] Operative Reporton Operative Report Date of Surgery: 03/05/2021 SURGEON: Libby Gaitan Jr., M.D. PREOPERATIVE DIAGNOSIS: Encounter for mastoid cavity debridement, cognitive impairment POSTOPERATIVE DIAGNOSIS: Encounter for mastoid cavity debridement, cognitive impairment OPERATION: Bi mastoid cavity debridement ANESTHESIA: General LMA COMPLICATIONS: None FINDINGS: Bilateral complete filled mastoid cavities with squamous and ceruminous debris, right tympanostomy tube in place and patent. INDICATIONS: This 30-year-old man with a significant cognitive impairment has a remote history of bilateral canal wall down mastoidectomies and presented with markedly filled bilateral external auditory canals and mastoid cavities. An attempt was made to debride the cavities in the office, however because of his cognitive impairment this was not possible. PROCEDURE: The patient identified in the Holding Area and taken back to the Operating Room where he was placed in a supine position. After induction of general anesthesia by LMA, the right ear was approached with the otomicroscope and using various picks, forceps and suctions, the mastoid cavity was debrided. Attention was then turned to the left ear and the same procedure was performed. The patient tolerated the procedure well and there was no evidence of post obstructive infection. He was awakened and taken to the Recovery Room in good condition. Libby Gaitan Jr., M.D. gls Dictated: 03/05/2021 #[id number] Typed: 03/05/2021 #[id number] cc: Libby Gaitan Jr., M.D. *Darrin Osman Jr., M.D. [facility] Comment on above: Result Comment: Elec tronically Signed By: Eugenio LONG, Libby Finch\.br\Date and Time Signed: 03/05/21 13:36 EDT Outpatient Surgery Discharge Instructionon 03-05-2021 Outpatient Surgery Discharge Instruction [place] [address] Patient Discharge Instructions PERSON INFORMATION Name: RACHEL DAVISON Date of : 1990 Current Date: 03/05/2021 09:19:04 PHYSICIANS Admitting Physician: Libby Gaitan MD Discharge Diagnosis: Cognitive impairment; Encounter for mastoidectomy cavity debridement RACHEL DAVISON has been given the following list of follow-up instructions, prescriptions, and patient education materials: PATIENT FOLLOW-UP INFORMATION Diet: Regular Discharge Activity: Activity as tolerated IF UNABLE TO CONTACT YOUR PHYSICIAN AND YOU FEEL IT IS AN EMERGENCY, GO TO THE NEAREST EMERGENCY ROOM OR CALL 911 I, RACHEL DAVISON, have received the attached patient education materials/instructions and have verbalized understanding: May we do a follow up call? Yes No I was present when discharge instructions were given Patient Signature ___ Date Clinican/Nurse Signature Date Follow up: With: Address: When: Libby Gaitan Comments: One year Pharmacy Information: You may receive a survey from [employer] asking you to rate your care experience. Your feedback is important and will help us understand what we do well and how we can improve the quality of care we provide to you, your loved ones and our community. It?s an honor to serve you. Thank you for choosing [facility] HERE ARE THE MEDICATION CHANGES THAT OCCURRED DURING YOUR HOSPITAL STAY PATIENT EDUCATION INFORMATION Instructions: Normal [facility] Patient Education - Texton 0 03-05-2021 Patient Education - Text Normal [facility] Progress Note-Physicianon Progress Note-Physician Patient: RACHEL DAVISON Age: 30 years Sex: Male : 1990 Associated Diagnoses: None Author: Parvez Newton Jr., DO Postoperative Information Post Operative Note: Post Anesthesia Care Unit. Anesthetic utilized: General. Health Status Allergies: Allergic Reactions (Selected) Severity Not Documented Ceclor- Raised welts. Problem list: All Problems Down's syndrome / SNOMED CT 611262012 / Confirmed Impacted cerumen / SNOMED CT 55290453 / Confirmed Physical Examination Vital Signs 03/05/2021 10:15 EDT Temperature Temporal Artery 36.4 DegC Heart Rate Monitored 78 bpm Respiratory Rate Monitored 16 br/min Systolic Blood Pressure 111 mmHg Diastolic Blood Pressure 71 mmHg Blood Pressure Location Right arm Mean Arterial Pressure, Cuff 84 mmHg SpO2 99 % 03/05/2021 9:36 EDT Heart Rate Monitored 86 bpm Respiratory Rate 16 br/min Systolic Blood Pressure 109 mmHg Diastolic Blood Pressure 66 mmHg Mean Arterial Pressure, Monitered 80 mmHg SpO2 100 % 03/05/2021 9:36 EDT Temperature Temporal Artery 36.5 DegC 03/05/2021 9:28 EDT Temperature Temporal Artery 37.1 DegC Heart Rate Monitored 83 bpm Respiratory Rate Monitored 16 br/min Systolic Blood Pressure 121 mmHg Diastolic Blood Pressure 77 mmHg SpO2 97 % 03/05/2021 9:13 EDT Heart Rate Monitored 79 bpm Respiratory Rate Monitored 18 br/min Systolic Blood Pressure 130 mmHg Diastolic Blood Pressure 73 mmHg SpO2 97 % 03/05/2021 9:08 EDT Heart Rate Monitored 82 bpm Respiratory Rate Monitored 23 br/min Systolic Blood Pressure 130 mmHg Diastolic Blood Pressure 86 mmHg SpO2 99 % 03/05/2021 9:03 EDT Temperature Temporal Artery 36.6 DegC Heart Rate Monitored 85 bpm Respiratory Rate Monitored 15 br/min Systolic Blood Pressure 129 mmHg Diastolic Blood Pressure 86 mmHg SpO2 100 % Pain assessment: Pain Assessment 03/05/2021 10:15 EDT Pain Symptoms Self Report No, able to self report Preliminary Pain Scale 0 Patient Preferred Pain Tool Numeric rating Numeric Pain Scale 0 = No pain Numeric Pain Score 0 03/05/2021 9:36 EDT Preliminary Pain Scale 0 03/05/2021 9:36 EDT Pain Symptoms Self Report No, able to self report Patient Preferred Pain Tool Numeric rating Numeric Pain Scale 0 = No pain Numeric Pain Score 0 03/05/2021 9:13 EDT Pain Symptoms Self Report No, able to self report . General: Alert and oriented, No acute distress, No nausea. Adequate hydration.. Respiratory: Adequate air exchange.. Cardiovascular: stable. Neurologic: Normal sensory. Review / Management Condition: Stable. Assessment Anesthetic outcome No anesthetic complications noted. Plan Transfer/ Discharge: Condition stable. Normal [facility] Comment on above: Result Comment: Elec tronically Signed By: Parvez Newton Jr., DO.br\Date and Time Signed: 03/05/21 14:56 EDT Progress Note-Physician Patient: HEISHMAN, RACHEL N Age: 30 years Sex: Male : 1990 Associated Diagnoses: None Author: Parvez Newton Jr., DO Preoperative Information Time patient last ate or drank:=== (NPO since midnight) Anesthesia history: Patient History: No prior problems with anesthesia.. Re-eval prior to induction: Inital eval reviewed: No significant interval change, Surgical H&P documented and on chart. Surgical consent signed and on chart.. Anesthesia results Review of Systems Cardiovascular: Negative except as documented in history of present illness. Respiratory: Negative. Neurologic: Negative. Health Status Allergies: Allergic Reactions (Selected) Severity Not Documented Ceclor- Raised welts., Allergies (1) Active Reaction Ceclor raised welts Current medications: (Selected) Inpatient Medications Ordered Lactated Ringers IV Breanna 1000 mL 1,000 mL: 1,000 mL, IV, 150 mL/hr, Routine, Start date 03/05/21 6:30:00 EDT, 6.7 hour(s), Total volume (mL): 1,000, 57.5 kg, 1.65, m2 Histories Past Medical History: No active or resolved past medical history items have been selected or recorded. Family History: No family history items have been selected or recorded. Procedure history: Histology tonsillectomy ([id number]). Myringotomy and insertion of T tube several surgeries ([id number]). Social History Social & Psychosocial Habits Alcohol 02/20/2021 Risk Assessment: Denies Alcohol Use Substance Abuse 02/20/2021 Risk Assessment: Denies Substance Abuse Tobacco 02/20/2021 Risk Assessment: Denies Tobacco Use . Physical Examination Airway: Respiratory: Lungs are clear to auscultation. Cardiovascular: Regular rhythm. Review / Management Results review: Lab results 02/20/2021 14:01 EDT WBC 7.1 E9/L RBC 4.8 E12/L Hgb 14.8 gm/dL Hct 44.0 % MCV 92.4 fL MCH 31.1 pg MCHC 33.6 gm/dL RDW 14.3 % HI Platelet 285.0 E9/L MPV 7.3 fL Neutro Auto 72.8 % Lymph Auto 19.9 % [place] Auto 6.1 % Eos Auto 0.5 % Basophil Auto 0.7 % Neutro Absolute 5.1 E9/L Lymph Absolute 1.4 E9/L [place] Absolute 0.4 E9/L Eos Absolute 0.0 E9/L Basophil Absolute 0.0 E9/L . Plan [place] [employer] of Anesthesiologists (ASA) physical status classification: Class II. Anesthetic Preoperative Plan Anesthesia: General. . Anesthetic plan, risks, benefits, and alternatives discussed with the patient and/or family. Patient verbalized understanding. Adverse reactions, complications, and alternatives discujssed. Consent signed and on chart.. Airway: MP IV, Normal [place] [facility] Comment on above: Result Comment: Elec tronically Signed By: Joe Hartman DO, Parvez Herron\.br\Date and Time Signed: 03/05/21 08:29 EDT Coding Summary.on 03-02-2021 Coding Summary. [id number] Gh0bW w+PGhlYWQ+PH2VSWUcF91rhPO vsS2SD6nDYT9YGQDFBKIAAG5K RW1mvWU2PIwjH9IhiqVx QszweAFdKC21TQx2PXD4yDtiU GfwuG0ylXHjT0x1HlOhVD40cF 99OArgOYWjJtQ2DrOodszfqDY y J0dnNfQxkPSvToy+PHRhYmxlI HdpZHRoPScxMDAlJyBzdHlsZT 9nJw9cEUUkXXKcuMaczGHnHvS j b3bjOHOaBAhyON9daWkxE7Kyy XG5KVZhk8w8Ww83rJW+PHRkIH K5wKvtEPiqm355KvNwa8qkKHB 3 cUKoQStsHZF7T85ub3S8YASyD SWmRYC8bRH1kM6ynOhpazddD2 GasVSaRqP2LBT5kGRoiZ2wsYe n mdzbmX7uWxs+S52ZQF8BBCQJA D5JSnm0O2ToCunizXS+PC90YW MrSR94cPXksBQnj3ehmKz3SvU w KXEgVSR6xYtiRTjyl0HlEOXbR 10llRHzg2W0SXFobDosyWMeAd QjyDP1kN9gABzsmbgvv0fesio n Snctn5nlzy52wF04X93bIHpeL JVwNEO0KMUdLZEjfBsglc7yoB 9wIi8+JWlmd5wcv4hapNp7XuO w UOEopnTvyWbbLID0l6LhKs18F 3WtzWqrt7JaEhm2jy06oOJpu5 P0oAK9OLljVPOazV7kUGfyGqT 6 THSdErFpzY85fNGpPYdxXx1lr DuulCmbAK5wNWRxzdbqOWTumT 8iPEQchWOykAlwZI9sODCkzwq m t919WiQiWHM1OAScmIVuC1Urp C8lRcEiNRUmLABeC7FnqTOgES cfD670JTekZtL8QTCenkKyF4M s ESUzsSdkTxZ1m4F2Pp4Yz6Fut apxYUJ1BWqkWFJ1QfU1VvJeNa T2M9IpCir5TVAgeQvvWE2qU1A h FVWgruedtayclLV1KCHpVVJnq H26lONuMWczMi2nk3Z4m628EC EbVQDkrB49Pm9arXkaQBPypRF U eU1zzptyh5ycqpknUzEcEASkT Ap3GFo6STPmsBsjIeWoJZH8Tr R4SMV9oDGccV4ouUmqjtrslH4 w Oyc+K05gnS1wOFJ1WYO1aqncZ ZSfenDrCM88QC62E6XgMasfhF FibGU+OMBljvGzfFaiIR5zSeL j o1dqf5InLVsmK8KwCVNiSQcaF lk6RMSgWFJ7pLO8hP2uWMLuEH dcn8X8bGT0F3VcebAupw2bt1f s YQAiHJoqO81vhHXxf8K7LQTvq UB3PERxvFshSkSjaQ55Aee+PG MoqUrge3CeCxvto9wny1rltIm 9 AsMmLDOiyoUoySghPGW6p5UlB v81E85aYRrnHMPbQCYeUFDuQG WrpHnpgk2dkP1gDo4+PGNvbCB 3 oTR9lT9rGLNzFoC4PTyaI071L wYweHZwQvrzp4xcw1txaAe7Pc LqMGNutcXvrHjmFZO6z0TpDg9 8 L73aGQjlXQRtBGOdRLWmETLsp Dhkpg1oaD9dZp6+NO1yl7nzck 49aX55iIG+GNPhMAW0kQkaUKs w DNJdgK5dPPjeHbS3IQEmIeLmk G07aVWbWQkhDs3jvQyzoZvqJY 0rKXMqyfxrr203MnKci8vzMZI w cTDtUYrkBSM3A12gz8K4QLUzR NNtZPB2wUY7uQ2ibBqnamsxfG XqtKkbskYiwPtxEDwuDHmgG75 6 IHRvcDsnPlBhdGllbnQgTmFtZ Js4W8ZxZln6THMlxMxxWP6qwR UsYPoeLv7arEsjgPedAA1xTPC p bcngr724OrCng0yeZILsrCAtD DezIAD3H39md4U4LTFmUJLvZD I6aXQ1gL2fjNktajzaoYMoqVs g mdXzoSdrEAroJFnuX465JJIcv QnuJbOlxoEaUVLskJZ3JW06LC 33xFAci2G6lLJ1Y7CoNLFooxh t bkswnOG5RZWxWTTpzL91Xt4dm EzcEb2rCNJdGNT1RKHeiWUsH8 FijM6sRcEtQNZzKDIwO6QtjEA t XSmuK184QKeiBhG2HABcriIaU 6FaSHCvyKlsFmV4t4T6Rm2XK5 I6AI11FW98lJSzu7I4jPI5M4V h UCRhkgwpsuefxHY4SWWrZPPok Y76Jz8osBmqGp1hUYJpMIR2VW YmsLReB7NjnF1rJjDbDRKyESU w T9BndAOaAWvoD907BVpcUnQ1Y TFvewTjE7YeKCHixCvqUgM8r2 M2Ue6VNBc8TZ04BJ35qJAae1B 5 qVV5I0MbIAVyejziqmedzHU4Y CBgSNKqoE94Pq3xrGyvOo1xQS QqHMX3HVZsnFXoK0ZobT5bTnY j PDNdTFYyC5JotWKxDYidH541P JloOdD6NKJvskEwH7NkSMCgjO fcAwN5b5Z7Ct9VVDTrXA07GSW 5 eOL0BE41TW00A6HlImgbeXHre +PHRhYmxlIHdpZHRoPScxMD GrJmAucNqeUL5dSa9wQLBnJXF v zOxazSSkXiCjy2qsUMNjZKbjF E4bwHraB7JxhDP7TNRni3q1Hv 54T47zL3RiqRW+FVHceJM5gPJ 0 eJ2hHiAkDtW9OTzqQ733PqCai CZwBetff2lhb2hyxTn9ToS5HF QjqfWcnWamAKK6q2YmHm33V15 s IHdpZHRoPSIxNSUiIHZhbGlnb y7slK5eMb6+FBSsmIJ6xOM5eK 0fFfXlArM0JTsyE522YgPrwGU v Eksyi4pgy7kgwAd1IeToKXClw jVryPhyMPM6t3NjAc96J8LqbY sdj5FfNfu1sj78mYGmm4W1aUN 9 S9ZwYVVpgesaxVZxiDjgGR2nP NXebxaaIXKacM5jJFTfV2r7Tg FpPvQ4NMooL6IleaX9VVHssIP g PAneFCO8B87cr7Z3GMRtMTLoS KU1gKE0oM0sfYmxjwuihUFtxH fctgJyeJtcTItsJQusP841HJL v xYnaHLWckT0sSYFedLDqyLjoI P6eNFEoeskkCobSVKXUSBYOQB WICQGLJA8zBvysiDJ+PHRkIHN 0 sSmyKYzzQCVpkN2sEYSzC0q7M iJzTrZ5SGjrA8HeYGTfodruTq 00pX7kDfVxTcT4LSzwL6AppbY 6 PLPsvJRiCDgwUQR3Y42wz9W4Q YYlLLNuBPN9dOR4cF5ljRcnih ogbGVmdDsgdmVydGljYWwtYWx p E980EFBjqRuaXyMjRxOlQeP3I Rn0W5QjMur4DRCoqQnjNM4unW QoRKfjOj7qxXinpNymDO9pSJB p fmexMSJizF4nWUXezPAnlJnwB G8qLSFktofbv202NsJmVLL9KV VyuXQdJ3MtaQ7uDeLzDDUpCBS w C6BeyCQtFRxjG913XScyJmU0G LLfboAxK8LeIFYkuZezAgB5a7 W5Ck2uIFJBBLZitswoaLA+PHR k UFD1pTubYQadEVBmbG4wFMSnG 5e7KqJyGaH1LUesY8GkRIVwti lsYj60iU7nGhGtXhU7XFfnP0B v lxZ6WDUjsNDoUHnsMWQ6L18ju 9P1VKTeITGnGYW5fLG0oE4vkY lnbjogbGVmdDsgdmVydGljYWw t KUtpA478EQNkkNbdLf8dbPP9X 5DbPfm3ALXtdZctAZ2yiONqHG tbRu7ylLeowBfvAH9lSKOfpnl w AFGzxS5xEVXqwGHhsClpYH9jF UOlemlbd526OlAzOAH5HPNynT ByC2IqhQ8vSdSuWRBxGZRsW5K l tJDfAFawD129QWogDrE4QADfe wOiT5ZdFOYukVgnSdW1m2I0Zr 5NpGUjCGJzPB44TC02EA09Y5P y PjwvdGFibGU+PHRhYmxlIHdpZ EAjXGoiVEOiUcFwqRvqBZ6xAz 5tFEWtYMNpeKulgVNsNnKym6g s CJLcSXetUK3ajFdvA0QcsTC3T VEpk5t2Ft81K07jF7RgjWO+PG JhcLT7tGW7rC9hJoVtBbN6XBc p A991CnMthFTmIvqsf2exu6bkl Ul7SvZpBASllgMdgLvyFGS1k9 VeRc40I11iVTuhRFDxTEMfKHF i CXJcuNjrqc8uxN8nBt8+PGNvb QG3nTV6sK2bKoYtHgZ4JBovF7 30FlJclJXmSjowX55sZ7TiyMM + GMNiCls3LWUiyEbeOY1xhMEjV OgyJi3aJDQ5KtXzRdIeKPmuW3 CjZQLqjiiohrhkjKN3NPXcSSI w oU90Ya2qmEmkCv9hFGNxNVS1K IKuyHZaA3ZrwI9eJzBrQKNnSX CiD4PifLCwRQmrU339DRaqSsB 7 XJLjfqXpA8IwKEBseTpxIwV0v 4X6Tz5FgGlqoFCzCM6zRzUyUW n0Q1WmWum5GKPwrDacHG9igJV k UQkxYv5ktRfzaVhcIN5sINZxh ncao706KeIuc8wpRGYsfANbVY eaQKQ2S19rl9S8DQEcQVYtSPS 7 hPG1gZ6ujDtrptiwhYJmrDqmy nPnxLgoERxeVQqnI475FJLvjH brFjFHGce5O9PfIpk6NCLhrSr s LM5pvTTdHCjqYb1apPxwlXpyJ Y2mNBAaktdwf528YqOme6szRE XhkJHmUQsmUBF4C55qh0O5RCB w VCKeUZG4jYB3wQ0pcPoglcjts GVmdDsgdmVydGljYWwtYWxpZ2 49GHThkOitUd2OVcr1M0XrQvt 0 UXFrwMwcHB3quWHfPEykEr7rr FrmzDitRA4vLJCbpzqdj108Dl Wks4bjRUYpbAFpRDoiHNR7G90 s q5A1REBkGJQiXHM9yNJ2pW0va GlnbjogbGVmdDsgdmVydGljYW yyKQajB885QJPuiVefKuIzcSH y OjwvdGQ+XX69sq94U4GaLigpY ri0MJHnVFC8lJP6eA4vMZFlEP adv5U7pGZ3Y6MkpgYfmu3ca0o s YXBz (more content not included)... Normal [facility] Immunization Recordson 02-23 Immunization Records [id number]:1 27 Normal [facility] Auto Diffon 02-20-2021 Basophils/100 WBC (Bld) 0.7 % Normal 0.0-2.0 [facility] Comment on above: Order Comment: Order Added by Discern Expert. Performed By: #### 2 [id number], [id number] ####[facility] [address] [place] [address] Basophils/Leukocyt es Auto (Bld) [Pure # fraction] 0.0 E9/L Normal 0.0-0.2 [facility] Comment on above: Order Comment: Order Added by Discern Expert. Performed By: #### 2 [id number], [id number] ####[facility] [address] [place] [address] Eosinophils/100 WBC (Bld) 0.5 % Normal 0.0-8.0 [facility] Comment on above: Order Comment: Order Added by Discern Expert. Performed By: #### 2 120363, [id number] ####[address] [address] Eosinophils/Leukoc ytes Auto (Bld) [Pure # fraction] 0.0 E9/L Normal 0.0-0.5 [facility] Comment on above: Order Comment: Order Added by Discern Expert. Performed By: #### 2 [id number], [id number] ####[address] [address] Lymphocytes/100 WBC (Bld) 19.9 % Normal 14.0-50.0 [facility] Comment on above: Order Comment: Order Added by Discern Expert. Performed By: #### 2 917384, [id number] ####[address] [address] Lymphocytes/Leukoc ytes Auto (Bld) [Pure # fraction] 1.4 E9/L Normal 1.0-4.0 [facility] Comment on above: Order Comment: Order Added by Discern Expert. Performed By: #### 2 363453, [id number] ####[address] [address] Monocytes/100 WBC (Bld) 6.1 % Normal 4.0-14.0 [facility] Comment on above: Order Comment: Order Added by Discern Expert. Performed By: #### 2 505690, [id number] ####[address] [address] Monocytes/Leukocyt es Auto (Bld) [Pure # fraction] 0.4 E9/L Normal 0.2-1.0 [facility] Comment on above: Order Comment: Order Added by Discern Expert. Performed By: #### 2 692148, [id number] ####[address] [address] Neutrophils/100 WBC (Bld) 72.8 % Normal 36.0-75.0 [facility] Comment on above: Order Comment: Order Added by Discern Expert. Performed By: #### 2 118055, [id number] ####[address] [address] Neutrophils/Leukoc ytes Auto (Bld) [Pure # fraction] 5.1 E9/L Normal 2.0-7.5 [facility] Comment on above: Order Comment: Order Added by Discern Expert. Performed By: #### 2 671551, [id number] ####[address] [address] CBC w/ Auto Diffon Erythrocyte distribution width (RBC) [Ratio] 14.3 % High 10.9-14.2 [facility] Comment on above: Performed By: #### 2 243285, [id number] ####[place] [address] Hematocrit (Bld) [Volume fraction] 44.0 % Normal 37.7-49.0 [facility] Comment on above: Performed By: #### 2 896729, 4763138 ####[address] [address] Hemoglobin (Bld) [Mass/Vol] 14.8 g/dL Normal 13.5-17.5 [facility] Comment on above: Performed By: #### 2 649153, 0183603 ####[address] [address] MCH (RBC) [Entitic mass] 31.1 pg Normal 27.0-34.0 [facility] Comment on above: Performed By: #### 2 400422, [id number] ####[address] [address] MCHC (RBC) [Mass/Vol] 33.6 g/dL Normal 31.4-36.0 [facility] Comment on above: Performed By: #### 2 669455, 4906120 ####[address] [place] [address] MCV (RBC) [Entitic vol] 92.4 fL Normal 80.0-100.0 [facility] Comment on above: Performed By: #### 2 816698, 6289511 ####[address] [address] Platelet mean volume (Bld) [Entitic vol] 7.3 fL Normal 6.4-10.8 [facility] Comment on above: Performed By: #### 2 809087, 6762016 ####[address] [address] Platelets (Bld) [#/Vol] 285.0 E9/L Normal 150.0-500.0 [facility] Comment on above: Performed By: #### 2 124348, 2106228 ####[address] [address] RBC (Bld) [#/Vol] 4.8 E12/L Normal 4.3-5.9 [facility] Comment on above: Performed By: #### 2 020134, [id number] ####[place] [id number] WBC corrected for nucl RBC Auto (Bld) [#/Vol] 7.1 E9/L Normal 4.0-11.0 [facility] Comment on above: Performed By: #### 2 219439, 2889008 ####[address] [address] Consent for Treatmenton Consent for Treatment [id number]:12 7 Normal [facility] Consent for Procedure/Surger yon 02-18-2021 Consent for Procedure/Surgery [id number]:1 27 Normal [facility] Operative Reporton 7 Operative Report MR#: [id number] [facility] Pt. Name: Rachel Davison Room #: 0C Discharge 05/17/2017 Date: Birthdate: 1990 OPERATIVE REPORTDATE OF SURGERY: 05/17/2017SURGEON: Darian Jones D.D.S.Saw the patient in OR on May 17, 2017 for the dental treatment.SURGEON: Darian Jones D.D.S.[employer] DIRECTOR: Ariadna Geiger DM.D.TYPE OF ANESTHESIA USED: General anesthesia given by Dr. Trimble andsupervised by Dr. Olmedo.PREOPERATIVE DIAGNOSIS: Dental caries, periodontitis.PROCEDURE PERFORMED IN OR: The patient was brought to the OR andtransferred to the table in a supine position. General anesthesia wasinduced and the airway was supported by endotracheal intubation. Thepatient was prepped for the procedure in the normal fashion. Wbta-nqiaip-ybkh were exposed including 8 posterior PAs, 8 anterior PAs and 2bitewings and sent for processing. A dental prophyaxis was performed with aCavitron and hand scalers. Upon completion of the prophy, gnosticism of#2, #3, #I, #23, and #24were completed. Extraction performed for #15 undergeneral anesthesia.POSTOP PROCEDURE AFTER DENTAL TREATMENT: The patient was awakened in theOR and then taken to PACU where he was discharged in good condition.Blood loss: minimalElectronically Signed by:Darian Jones D.D.S. 05/24/2017 09:59 A Darian Jones D.D.S. I was present for the entire procedure. Date Dict: 05/18/2017/07:10 P/Ariadna Geiger, DMDDate Trans: 05/19/2017 05:00 [id number] Normal [facility] Vital Signs Date Time Vital Sign Value Performing Clinician Faci lity 11-02-2023 10:27-0500 Body height 167.6 cm Libby Gaitan MD Work Phone: [facility] 11-02-2023 10:27-0500 Body mass index (BMI) [Ratio] 23.89 kg/m2 Libby Gaitan MD Work Phone: [facility] 11-02-2023 10:27-0500 Body weight 67.13 kg Libby Gaitan MD Work Phone: [facility] 11-02-2023 10:27-0500 Diastolic blood pressure 72 mm[Hg] Libby Gaitan MD Work Phone: [facility] 11-02-2023 10:27-0500 Systolic blood pressure 124 mm[Hg] Libby Gaitan MD Work Phone: [facility] Encounters Encounter Date Encounter Type Care Provider Facility Start: 11-02-2023 Bamlazaro nicole MD Work Phone: [facility] Start: 11-02-2023 Bamlazaro nicole MD Work Phone: [facility] Start: 11-02-2023 End: 11-02-2023 ambulatory LIBBY GAITAN Not Available Start: 11-02-2023 End: 11-02-2023 Office outpatient visit 25 minutes Libby Gaitan MD Work Phone: [facility] Comment on above: Bilateral impacted c erumen (Primary Dx); Oropharyngeal dysphagia Start: 10-29-2023 Chart abstracting Libby jaramillo MD Work Phone: [facility] Start: 10-05-2023 End: 10-06-2023 ambulatory LIBBY GAITAN [facility] Start: 09-06-2023 End: 09-06-2023 ambulatory LIBBY GAITAN Not Available Start: 06-24-2023 Admission to [facility] Anna Ferrell DDS Work Phone: [facility] Start: 11-10-2022 Encounter for preprocedural laboratory examination DR LIBBY GAITAN [facility] Start: 11-09-2022 End: 11-09-[address] LIBBY GAITAN Facility:[facility] Start: 11-04-2022 End: 11-05-[address] LIBBY GAITAN Facility:[facility] Start: 11-04-2022 End: 11-05-2022 Encounter for preprocedural laboratory examination DR LIBBY GAITAN Facility:[facility] Start: 07-13-2022 End: 07-14-2022 ambulatory DARRIN Salazar [facility] Start: 07-13-2022 End: 07-13-2022 Subsequent hospital visit by physician Jack Salguero Echo Rm 1 [facility] Start: 03-23-2022 End: 03-23-[address] LIBBY GAITAN Facility:[facility] Start: 03-17-2022 End: 03-18-[address] LIBBY GAITAN Facility:[facility] Start: 01-20-2022 End: 01-25-2022 ambulatory UNKNOWN PROVIDER Facility:[facility] Start: 01-20-2022 End: 01-25-2022 Patient encounter procedure Mayela Lopez 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 Mary Anne Heller MD Work Phone: Start: 05-17-2017 ANESTH PROCEDURE ON MOUTH BRYN COTO Start: 05-17-2017 DENTAL UNSPEC RESTOR ATIVE [place] DARIAN JONES Start: 05-17-2017 EXTRACTION ERUPTED TOOTH/EXR DARIAN JONES Plan of Treatment Date Care Activity Detail Author Start: 2039 Shingles (RZV) Vaccine (1 of 2) Shingles (RZV) Vaccine (1 of 2) [facility] Start: 01-04-2024 End: 01-04-2024 Patient encounter procedure 01/04/2024 11:20 AM EDT Office Visit [facility] [address] [facility] [address] [place] [phone] Libby Gaitan MD [address] [facility] [address] [place] [address] [facility] Start: 11-02-2023 End: 11-02-2023 Patient encounter procedure 11/02/2023 10:20 AM EST Office Visit [facility] [address] [facility] [address] [place] [id number] Libby Gaitan MD [address] [facility] [address] [place] [address] [facility] Start: 05-20-2023 Influenza vaccination Influenza Vaccine (#1) [facility] Start: 04-19-2022 Influenza vaccination [facility] Start: 2016 HPV Vaccine (optional start 27-45 years) HPV Vaccine (optional start 27-45 years) [facility] Start: 2008 Tetanus vaccination Tetanus (Td) Booster [facility] Start: 2007 Hepatitis C screening [facility] Start: 2007 Tetanus + diphtheria + acellular pertussis vaccine (product) Tdap [facility] Start: 2004 HIV screening [facility] Start: 2001 Depression Screen [facility] Screen [facility] Start: 2000 DTaP/Tdap/Td vaccine (6 - Tdap) DTaP/Tdap/Td vaccine (6 - Tdap) [facility] Start: 04-15-1997 Varicella vaccine (2 of 2 - 2-dose childhood series) Varicella vaccine (2 of 2 - 2-dose childhood series) [facility] Start: 1994 COVID-19 Vaccine (1) COVID-19 Vaccine (1) [facility] Start: 01-06-1990 COVID-19 Vaccine (#1) COVID-19 Vaccine (#1) [facility] D[facility] RESTORATIONS DENTAL SAADIA RATIONS Routine scheduled Caries [facility] Immunizations Immunization Date Immunization Notes Care Provider Jill brewer 08-03-2010 influenza virus vacc ine, unspecified formulation Libby Gaitan MD Work Phone: [facility] Payers Date Payer Category Payer Medicare [facility] MEDICARE ADVANTAGE [facility] MEDIC[facility] ADVANTAGE [id number] 2022-Present [address] [place] [address] [id number] 2017 Medicaid [id number] 1989 Unknown [id number] 1989 Unknown [id number] 2.16.840.1.438492.3.579.2.175 1989 Unknown [id number] 2.16.840.1.076510.3.579.2.593 1989 Unknown [id number] 2.16.840.1.133668.3.579.2.593 1989 Unknown [id number] 2.16.840.1.415292.3.579.2.1286 1989 Unknown [id number] 2.16.840.1.590213.3.579.2.1259 1989 Unknown [id number] 2.16.840.1.926001.3.579.2.1259 1968 Unknown [id number] 2.16.840.1.289218.3.579.2.593 1968 Unknown [id number] 2.16.840.1.248183.3.579.2.593 1959 Medicaid [id number] 1960 Medicare [id number] 1960 Medicare [id number] Medicare [id number] Social History Date Type Detail Facility Tobacco smoking status LAIS Tobacco smoking consumption unknown [facility] Start: 1990 Sex Assigned At [facility] file [facility] Start: 07-13-2022 End: 09-01-2023 Tobacco smoking status NHIS Never smoked tobacco [facility] Phone: History of tobacco use Passive smoker [facility] Phone: Start: 07-13-2022 End: 09-01-2023 Tobacco use and exposure Smokeless tobacco non-user [facility] Phone: Start: 07-13-2022 Tobacco Comment parents smokes outsi de [facility] Work Phone: Start: 07-03-2022 End: 07-13-2022 Exposure to SARS-CoV-2 (event) Not sure [facility] Start: 09-06-2023 End: 11-02-2023 [facility] Start: 09-10-2023 End: 11-02-2023 Alcohol intake Lifetime non-drinker (finding) [facility] Start: 09-06-2023 End: 11-02-2023 History of Social function [facility] History of Present illness Narrative 11-02-2023 Libby Gaitan MD - 11/02/2023 10:20 AM EST Note Date & Type Note Facility 11-02-2023 History of Presen t illness Narrative Subjective Patient ID: Rachel Davison is a 33 y.o. male who presents for Dysphagia (Follow up esophagram, clean ears). Some motor control issues found during MBS. Speech recommended some interventions, but not ongoing tx. Review of Systems All other systems reviewed and are negative. Family History Problem Relation Name Age of Onset No Known Problems Mother No Known Problems Father Active Ambulatory Problems Diagnosis Date Noted Aortic valve disorder 06/29/2022 Bilateral hearing loss 09/01/2023 Down syndrome 11/21/2017 Hearing loss 06/29/2022 Plantar wart of left foot 06/29/2022 Resolved Ambulatory Problems Diagnosis Date Noted Impacted cerumen 06/29/2022 Past Medical History: Diagnosis Date Aortic heart murmur Bilateral hearing loss, unspecified hearing loss type Ceruminosis, bilateral COVID 02/2022 DiGeorge's syndrome (CMS/HCC) Down's syndrome Marfan syndrome (CMS/HCC) Past Surgical History: Procedure Laterality Date ADENOIDECTOMY TONSILLECTOMY TYMPANOSTOMY TUBE PLACEMENT Allergies Allergen Reactions Cefaclor Hives and Rash Cephalosporins Rash rash Current Outpatient Medications on File Prior to Visit Medication Sig Dispense Refill therapeutic multivitamin-minerals (Theragran-M) tablet Take 1 tablet by mouth in the morning. No current facility-administered medications on file prior to visit. Objective Last Recorded Vitals Vitals: 11/02/23 1027 BP: 124/72 ENT Physical Exam Ear Ear comments: Anthony cerumen impaction Respiratory Inspection: breathing unlabored; normal breathing rate; Auscultation: breath sounds are clear; Cardiovascular Inspection: extremities are warm and well perfused; no peripheral edema present; Auscultation: regular rate and rhythm; Assessment/Plan Diagnoses and all orders for this visit: Bilateral impacted cerumen Unable to tolerate debridement in the office. Plan r/o cerumen under anesthesia Oropharyngeal dysphagia Speech recommendations shared with mom documented in this encounter [facility] Clinical Note 11-09-2022 Note Date & Type Note Facility 11-09-2022 Note OPERATIVE NOTE OPERATION DATE: 11/09/2022 PRIMARY CARE PHYSICIAN: Darrin Hodge M.D. SURGEON: Libby Gaitan M.D. PREOPERATIVE DIAGNOSIS: Right cerumen impaction and left mastoid cavity debris. POSTOPERATIVE DIAGNOSIS: Right cerumen impaction and left mastoid cavity debris. PROCEDURE: Removal of right cerumen and debridement of left mastoid cavity. ANESTHESIA: General LMA. COMPLICATIONS: None. FINDINGS: Right cerumen impaction and right tube in place and patent and dry. Left mastoid debris. INDICATIONS: This 32-year-old man presented with right cerumen impaction and debris in his left mastoid cavity. He is unable to tolerate debridement in the office, and is therefore brought to the operating room periodically for debridement under anesthesia. PROCEDURE: Patient identified in the holding area and taken back to the OR where he was placed in the supine position. After induction of general anesthesia by LMA, the right ear was approached with the otomicroscope and cerumen cleaned from the canal using suction. Attention was turned to the left ear. The ear was also approached with the otomicroscope, and using suction, the external auditory canal and mastoid cavity were debrided. The patient was then awakened and taken to the recovery room in good condition. [facility] [place] Clinical Note 03-23-2022 Note Date & Type Note Facility 03-23-2022 Note OPERATIVE NOTE OPERATION DATE: 03/23/2022 PRIMARY CARE PHYSICIAN: Dr. Darrin Rose SURGEON: Libby Gaitan M.D. PREOPERATIVE DIAGNOSIS: History of bilateral canal wall down mastoidectomy. POSTOPERATIVE DIAGNOSIS: History of bilateral canal wall down mastoidectomy, plus right otorrhea. ANESTHESIA: General LMA. COMPLICATIONS: None. FINDINGS: Bilateral mastoid cavity debris. Right tube in place and patent with scant otorrhea. INDICATIONS: This 31-year-old man has a long history of chronic ear disease and has undergone bilateral canal wall down mastoidectomies in the past. He presented for routine debridement of his mastoid cavities, but was unable to tolerate debridement in the office. PROCEDURE: Patient identified in the holding are and taken back to the OR, where he was placed in a supine position. After induction of general anesthesia by LMA, the right ear was approached with the otomicroscope and using a right angled pick and alligator forceps, mastoid cavity was debrided. The patient still had a tube in place and patent with scant otorrhea. Therefore, Ciprodex drop were infused in the ear. Attention was then turned to the left ear which was also approached with the otomicroscope, and using alligator forceps and right angle picks, the ear was debrided. Patient was then awakened and taken to the recovery room in good condition.. [facility] Signed and Approved by: DR LIBBY GAITAN 03/30/2022 08:06:00 [facility] [place] History of Present illness Narrative 01-20-2022 Mayela Lopez, [facility] - 01/20/2022 1:38 PM EDT Note Date & Type Note Facility 01-20-2022 History of Presen t illness Narrative Special needs pt presents with his mother. He cannot tolerate an exam or treatment in the clinic. He has had work done under sedation previously at other offices. Dr. Pepper did the exam. Pt has many retained primary teeth. No pain is noted at this time. LG is mom, Bella Heishman: [phone] Tx request sent. MARTHA ALEJO [place]; OR ----- Signed on Thursday, January 20, 2022 at 3:57:46 PM ----- ----- Provider: Andre Seals DDS -- Clinic: [place] ----- documented in this encounter [facility] History and physical note 02-18-2021 Note Date & Type Note Facility 02-18-2021 Note [id number] [facility] Evaluation note Note Date & Type Note Facility Evaluation note Diagnosis Caries- Primary Unspecified dental caries documented in this encounter [facility] Evaluation note Note Date & Type Note Facility Evaluation note Diagnosis Bilateral impacted cerumen- Primary Impacted cerumen Oropharyngeal dysphagia Dysphagia, oropharyngeal phase documented in this encounter [facility] Summary Purpose Family History No Family History Records FoundNo Family History Records FoundNo Family History Records FoundNo Family History Records FoundNo Family History Records FoundNo Family History Records FoundNo Family History Records Found Advance Directives No Advanced Directives Records FoundNo Advanced Directives Records FoundNo Advanced Directives Records FoundNo Advanced Directives Records FoundNo Advanced Directives Records FoundNo Advanced Directives Records FoundNo Advanced Directives Records Found Reason for Referral Specialty Diagnoses / Procedures Referred By Contac t Referred To Contact Anesthesiology Diagnoses Caries Kj Boss DDS [address] [place] [address] [facility] [address] [address] Referral ID Status Reason Start Date Expiration Date V isits Requested Visits Authorized [id number] Authorized 06/24/2023 06/24/2024 1 1 Scheduling Instructions Your surgical team will reach out to you to schedule a preadmission testing appointment. Question Answer Reason for consult? Recommended PSE Risk Score Additional Source Comments (unrecognized sect ion and content) No Status Records FoundNo Status Records FoundNo Status Records FoundNo Status Records FoundNo Status Records FoundNo Status Records FoundNo Status Records Found INFORMATION SOURCE (unrecogn ized section and content) DATE CREATED AUTHOR 03/15/[address] [facility] DATE CREATED AUTHOR AUTHOR'S ORGANIZ ATION 03/11/2021 [facility] DATE CREATED AUTHOR AUTHOR'S ORGANIZ ATION 01/26/2022 [facility] DATE CREATED AUTHOR AUTHOR'S ORGANIZ ATION 07/14/2022 [facility] DATE CREATED AUTHOR AUTHOR'S ORGANIZ ATION 12/04/2022 [facility] DATE CREATED AUTHOR AUTHOR'S ORGANIZ ATION 10/08/2023 [facility] DATE CREATED AUTHOR AUTHOR'S ORGANIZ ATION 11/04/2023 [facility] EPIC Care Teams (unrecognized sec tion and content) Drafter Cartographic Relationship Specialty Start Date End Date Darrin Rose PCP - General 11/21/17 Drafter Cartographic Relationship Specialty Start Date End Date Darrin Rose MD [facility] [place] [address] PCP - General Family Medicine 03/14/23 Drafter Cartographic Relationship Specialty Start Date End Date Darrin Rose MD [address] [place] [id number] PCP - General Family Medicine 03/14/23 Drafter Cartographic Relationship Specialty Start Date End Date Darrin Rose MD [address] [place] [id number] PCP - General Family Medicine 03/14/23 Reason for Visit (unrecogniz ed section and content) Reason Comments Dysphagia Follow up esophagram , clean ears FOR RECORDS PERTAINING TO PATIENTS WHO ARE OR HAVE BEEN ENROLLED IN A CHEMICAL DEPENDENCY/SUBSTANCEABUSE PROGRAM, SOME INFORMATION MAY BE OMITTED. This clinical summary was aggregated from multiple sources. Caution should be exercised in using it in the provision of clinical care. This summary normalizes information from multiple sources, and as a consequence, information in this document may materially change the coding, format and clinical context of patient data. In addition, data may be omitted in some cases. CLINICAL DECISIONS SHOULD BE BASED ON THE PRIMARY CLINICAL RECORDS. [facility]. provides no warranty or guarantee of the accuracy or completeness of information in this document.
[2023-11-29] MEDS: LACTATED RINGER'S SOLUTION 1,000 ML 50 ML IV (07:27)
--- NOTE | 2023-11-29 08:48 | PC.NURSE ---
No active ear drainage noted; Mom at bedside; moves extremities in response to tactile stimuli and returns to a deep sleep
== END 2023-11-29 09:50 | disposition home or self-care (01) ==
PROVIDERS: PCP Family Medicine; Visit Provider Otolaryngology
PROC: (CPT 124; principal; 2023-11-29 07:50)
DX: H61.23 Impacted cerumen, bilateral (principal); Q90.9 Down syndrome, unspecified; Z86.16 Personal history of COVID-19; Q87.40 Marfan syndrome, unspecified; D82.1 Di George's syndrome
CPT/HCPCS: 69210; 36415; J2250

== ENCOUNTER 2025-03-11 11:32 | Outpatient (OUT) | payer MEDICARE, MEDICAID, SELFPAY | END 2025-03-11 11:33 | disposition home or self-care (01) | LOC: PST 11:32 | PROVIDERS: PCP Family Medicine; Visit Provider Otolaryngology | DX: Z01.818 Encounter for other preprocedural examination (principal); H61.23 Impacted cerumen, bilateral ==

== ENCOUNTER 2025-03-21 08:06 | Day surgery (SDC) | payer MEDICARE, MEDICAID, SELFPAY ==
--- OUTSIDE RECORDS SUMMARY | 2023-11-29 06:30 | XMS_ITS ---
Author Organization [facility] Address [address] [place] [phone] Care Team Providers Care Sales And Service Specialist Name Role Phone Victor Manuel Alfonso Primary Care Provider [phone] Garth Murray [phone] REASON FOR VISIT recheck ear, swallowing disorder Social History Sex Assigned At : Social History Observation Description Sex Assigned At Male Encounters Encounter Location Date Provider Diagnosis [address] [phone] 11/29/2023 Garth Rose Plan Of Treatment Next Appt Details Provider Name:Qasim Barros , 05/06/2025 10:45:00 AM, [address] [place] [address], [phone], Progress Notes * Reggie DAVISONinDOB:[birth year] (34 yo M)Acc No.[id number]:11/29/2023 Medical Note Patient: Stef TORRES Roman Provider: Alice Rose MD :1990 A ge:33 Y S ex:Male Date:11/29/2023 [id number] Pcp:Victor Manuel Alfonso Subjective: * Chief Complaints: * 1 . Recheck ear, swallowing disorder. * Medical History: Objective: * Vitals: Assessment: Plan: * Treatment: * Billing Information: * Visit Code: * Procedure Codes: * Electronic signature of Lawrence Rose MD on 03/21/2025 at 08:09 AM EDT Sign off status: Pending * Provider: Alice Rose MD Date: 0 11/29/2023 Generated for Pablo caballero/[facility] on: 0 03/21/2025 08:09 AM EDT
--- NOTE | 2025-03-21 | OP_ITS ---
OPERATION DATE: 03/21/2025 SURGEON: Libby Becker M.D. PREOPERATIVE DIAGNOSIS: Bilateral cerumen impaction. POSTOPERATIVE DIAGNOSIS: Bilateral cerumen impaction, right ear foreign body, right chronic myringitis. PROCEDURE: Removal of right ear foreign body, removal of left cerumen. ANESTHESIA: MAC. COMPLICATIONS: None. FINDINGS: Bilateral cerumen impaction, crust around patent right tympanostomy tube and inflamed right tympanic membrane. INDICATIONS: This 34-year-old man, who has Down syndrome and is unable to tolerate having his ears cleaned in the office, presented with a cerumen impaction. PROCEDURE: Patient identified in the holding area and taken back to the OR where he was placed in the supine position. After induction of MAC anesthesia, the right ear was approached with the otomicroscope. Suction used to suction the soft cerumen. Once the cerumen was removed, there was a large crust around the patient?s tympanostomy tube, which was carefully teased away from the tympanic membrane with a pick and removed with an alligator forcep. There was some inflammation of the tympanic membrane around the tube, and Ciprodex drops were infused. Attention was then turned to the left ear and suction used to debride soft cerumen from the external canal. Patient was then taken to the recovery room in good condition. [facility]
--- OUTSIDE RECORDS SUMMARY | 2025-03-21 08:09 | XMS_ITS | Clinical Summary ---
Author Organization [facility] Address [address] [place] [address] Care Team Providers Care Nail Setter Name Role Phone Garth Rose MD Primary Care Provider [phone] Allergies Active Allergy Reactions Criticality Noted Date Comments Cefaclor Hives,Rash Medium 07/26/2017 Cephalosporins Rash Medium 03/04/2003 rash Medications therapeutic multivitamin-min erals (Theragran-M) tablet Take 1 tablet by mouth Daily Active Active Problems Problem Noted Date Diagnosed Date Acute bronchitis 02/26/2025 Blepharitis 02/26/2025 Congenital heart disease ([facility]) 02/26/2025 Developmental delay 02/26/2025 Dysphagia 02/26/2025 Ear pain 02/26/2025 Encounters for administrative purposes Eye infection 02/26/2025 Hyperlipidemia 02/26/2025 Influenza 02/26/2025 Influenza-like illness 02/26/2025 Marfan's syndrome 02/26/2025 Other allergy status, other than to drugs and biological substances 02/26/2025 Tuberculosis screening 02/26/2025 Syncope and collapse 02/26/2025 Bilateral hearing loss 09/01/2023 Aortic valve disorder 06/29/2022 Hearing loss 06/29/2022 Plantar wart of left foot 06/29/2022 Down syndrome ([facility]) 11/21/2017 Overview (09/01/2023): 47,XY,+21 Common non-disjunction form 47,XY,+21 Common non-disjunction form 47,XY,+21 Common non-disjunction form Acne 09/19/2004 Resolved Problems Problem Noted Date Diagnosed Date Resolved Date Impacted cerumen 06/29/2022 09/01/2023 Encounters Date Type Department Care Team Description 03/07/2025 Telephone [facility] [address] [facility] [address] [place] [id number] Claribel Granda MA PST information 02/26/2025 9:20 AM EDT Office Visit [facility] [address] [facility] [address] [place] [id number] Libby Becker MD Bilateral impacted cerumen (Primary Dx); ETD (Eustachian tube dysfunction), right 02/26/2025 Bamboo flowsheet [facility] [address] [facility] [address] [place] [id number] Libby Becker MD 02/26/2025 Travel from Last 3 Months Family History Medical History Relation Name Comments No Known Problems Father No Known Problems Mother Relation Name Status Comments Father Alive Mother Alive Social History Tobacco Use Types Packs/Day Years Used Date Smoking Tobacco: Never Smokeless Tobacco: Never Tobacco Cessation:Counseling Given: Not Answered Alcohol Use Standard Drinks/Week Comments Never 0 (1 standard drink = 0.6 oz pur e alcohol) Sex and Gender Information Value Date Recorded Sex Assigned at Male 12/29/2023 5:18 PM EDT Legal Sex Male 6:53 PM EDT Gender Identity Male 12/29/2023 5:18 PM EDT Sexual Orientation Not on file Last Filed Vital Signs Vital Sign Reading Time Taken Comments Blood Pressure 120/67 02/26/2025 9:25 AM EDT Pulse 71 02/26/2025 9:25 AM EDT Temperature - - Respiratory Rate - - Oxygen Saturation - - Inhaled Oxygen Concentration - - Weight 63.5 kg (140 lb) 02/26/2025 9:25 AM EDT Height 167.6 cm (5' 6 ) 02/26/2025 9:25 AM EDT Body Mass Index 22.6 02/26/2025 9:25 AM EDT Plan of Treatment Health Maintenance Due Date Last Done Comments Influenza Vaccine (#1) 2025 0, 07/11/2007, 08/06/2004, Additional history exists Insurance [employer] MEDICAID [place] Care Teams Nail Setter Relationship Specialty Start Date End Date Garth Rose MD [facility] [place] [address] PCP - General Family Medicine 03/14/23
--- OUTSIDE RECORDS SUMMARY | 2025-03-21 08:09 | XMS_ITS | Encounter Summary ---
Author Organization [facility] Address [address] [place] [address] Care Team Providers Care [employer]ile [employer]s Sales Representative Name Role Phone Garth Rose MD Primary Care Provider Encounter Details Date Type Department Care Team (Late st Contact Info) Description 09/01/2023 Abstract [facility] [address] [place] [address] [place] [address] Lay Holt RN [address] [place], [place] [id number] Social History Tobacco Use Types Packs/Day Years [...] PM EDT Sexual Orientation Not on file documented as of this encounter Plan of Treatment Not on file documented as of this encounter Visit Diagnoses Not on filedocumented in this encounter Care Teams [employer] Sales Representative Relationship Specialty Start Date End Date Garth Rose MD [address] [place] [id number] PCP - General Family Medicine 03/14/23 documented as of this encounter
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
--- OUTSIDE RECORDS SUMMARY | 2025-03-21 08:09 | XMS_ITS | Clinical Summary ---
Author Organization [facility] Address [address] [place] [address] Phone Care Team Providers Care Home Economics Extension Worker Name Role Phone Unavailable Primary Care Provider Unavailabl e Social History Tobacco Use Types Packs/Day Years Used Date Smoking Tobacco: Never Assessed Sex and Gender Information Value Date Recorded Sex Assigned at Not on file Legal Sex Male 6:11 AM EST Gender Identity Not on file Sexual Orientation Not on file Plan of Treatment Not on file
--- OUTSIDE RECORDS SUMMARY | 2025-03-21 08:09 | XMS_ITS | Encounter Summary ---
Author Organization [facility] Address [address] [place] [address] Care Team Providers Care Material Reclaimer Name Role Phone Garth Rose MD Primary Care Provider [phone] Reason for Visit * Reason Onset Date Comments PST information 03/07/2025 Encounter Details Date Type Department Care Team (Late st Contact Info) Description 03/07/2025 Telephone [facility] [address] [place] [id number] Claribel Granda MA PST information Social History Tobacco Use Types Packs/Day Years Used Date Smoking Tobacco: Never Smokeless Tobacco: Never Alcohol Use Standard Drinks/Week Comments Never 0 (1 standard drink = 0.6 oz pur e alcohol) Sex and Gender Information Value Date Recorded Sex Assigned at Male 12/29/2023 5:18 PM EDT Legal Sex Male 6:53 PM EDT Gender Identity Male 12/29/2023 5:18 PM EDT Sexual Orientation Not on file documented as of this encounter Miscellaneous Notes * Telephone Encounter - Claribel Granda MA - 03/07/2025 8:39 AM EDT Called and let mom know that PST appointment is March 13, 2025 at 9:00 am at [facility]. She understood. documented in this encounter Plan of Treatment Not on file documented as of this encounter Visit Diagnoses Not on filedocumented in this encounter Care Teams Material Reclaimer Relationship Specialty Start Date End Date Garth Rose MD [address] [place] [phone] PCP - General Family Medicine 6/26/23 documented as of this encounter
--- OUTSIDE RECORDS SUMMARY | 2025-03-21 08:10 | XMS_ITS | Clinical Summary ---
Author Organization [facility] 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 Resolved Problems Problem Noted Date Diagnosed Date Resolved Date Marfan's syndrome, unspecified 11/21/2017 07/19/2018 Overview (06/21/2023): Replacing diagnoses that were inactivated after the 06/19/2023 regulatory import Aortic root dilation 11/21/2017 018 Family History Medical History Relation Name Comments Other Brother 1 Laci aspbergers, aut isum Other Brother 2 Javier CP, Epilepsy No Known Problems Father Cancer Maternal Grandfather No Known Problems Maternal Grandmother Other Mother Ehlos danlos Other Paternal Aunt congenital shayna fness Down Syndrome Paternal Cousin Other Paternal Uncle congenital de afness Relation Name Status Comments Brother 1 Laci Alive Brother 2 Javier Alive Father Alive Maternal Grandfather Alive Maternal Grandmother Alive Mother Alive Paternal Aunt Paternal Cousin Paternal Uncle Social History Tobacco Use Types Packs/Day Years Used Date Smoking Tobacco: Never Passive Smoke Exposure: Yes Smokeless Tobacco: Never Tobacco Cessation:Counseling Given: Not Answered Comments:parents smokes outside Sex and Gender Information Value Date Recorded Sex Assigned at Not on file Legal Sex Male 3:28 PM EST Gender Identity Not on file Sexual Orientation Not on file Last Filed Vital Signs Vital Sign Reading Time Taken Comments Blood Pressure 122/69 07/13/2022 11:38 AM EDT Pulse 80 07/13/2022 11:38 AM EDT Temperature 37.4 C (99.3 F) 07/25/2018 11:07 AM EST Respiratory Rate - - Oxygen Saturation 98% 07/13/2022 11:38 AM EDT Inhaled Oxygen Concentration - - Weight 62.7 kg (138 lb 3.2 oz) 07/13/2022 11:38 AM EDT Height 168.9 cm (5' 6.5 ) 07/13/2022 11:38 AM ED T Body Mass Index 21.97 07/13/2022 11:38 AM EDT Plan of Treatment Health Maintenance Due Date Last Done Comments Varicella vaccine (2 of 2 - 2-dose childhood series) 04/15/1997 01/21/1997 DTaP/Tdap/Td vaccine (6 - Tdap) 2000 04/29/1994, 04/10/1991, 01/06/1990, Additional history exists Depression Screen 2001 HIV screen 2004 Hepatitis C screen 2007 COVID-19 Vaccine ( season) 2024 Flu vaccine (#1) 04/19/2025 08/03/2010 Hib vaccine Completed 01/04/1991 Polio vaccine Completed 04/29/1994, 03/20, 1989, Additional history exists Hepatitis B vaccine Completed 05/27/2000, 04/29/1999, 06/18/1998 Meningococcal (ACWY) vaccine Completed 05/10/2007 Pneumococcal 0-49 years Vaccine Aged Out 07/11/2007 No longer eligible based on patient's age to complete this topic HPV vaccine Aged Out No longer eligi ble based on patient's age to complete this topic Hepatitis A vaccine Aged Out No longe r eligible based on patient's age to complete this topic Meningococcal B vaccine Aged Out No l onger eligible based on patient's age to complete this topic Insurance MEDICAID [place] Care Teams Mask Design Engineer Relationship Specialty Start Date End Date Garth Rose PCP - General 11/21/17
--- OUTSIDE RECORDS SUMMARY | 2025-03-21 08:10 | XMS_ITS | Clinical Summary ---
Author Organization [facility] Address [address] [place] [address] Care Team Providers Care Psychiatric Nursing Aide Name Role Phone Errol Chapman MD Primary Care Provider Un available Allergies Active Allergy Reactions Criticality Noted Date Comments Cephalosporins 03/04/2003 rash Active Problems Problem Noted Date Diagnosed Date Other joint derangement, not elsewhere classified, other specified site 12/25/2004 Social History Tobacco Use Types Packs/Day Years Used Date Smoking Tobacco: Never Assessed Sex and Gender Information Value Date Recorded Sex Assigned at Not on file Legal Sex Male 9:50 AM EST Gender Identity Not on file Sexual Orientation Not on file Plan of Treatment Health Maintenance Due Date Last Done Comments Anxiety Screening 2007 Depression Screening 2007 HIV Screening 2007 Hepatitis C Screening 2007 DTaP,Tdap,Td Vaccine (1 - Tdap) 2008 Hepatitis B Vaccine (1 of 3 - 19+ 3-dose series) 07/08 Covid-19 Vaccine ( - season) 2024 Lipid Screening 2024 Influenza Vaccine (Season Ended) 2025 Care Teams Psychiatric Nursing Aide Relationship Specialty Start Date End Date Errol Chapman MD [address] [place] [id number] PCP - General 01/11/03
--- OUTSIDE RECORDS SUMMARY | 2025-03-21 08:10 | XMS_ITS | CCD ---
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 Name Role Phone UNKNOWN, PROVIDER Unavailable Unavailable UNKNOWN, PROVIDER Unavailable Unavailable SELF, REFERRED Unavailable Unavailable SELF, REFERRED Unavailable Unavailable MO Unavailable Unavailable UNKNOWN, PROVIDER Unavailable Unavailable MO Unavailable Unavailable BRYN COTO Unavailable Unavailable Unavailable Primary Care Provider Unavailabl e PROVIDER, UNKNOWN Attending Unavailable PROVIDER, UNKNOWN Admitting Unavailable Darrin Rose Primary Care Provider UnavailDARRIN Lora Referring Unavailable DARRIN ROSE Primary Care Unavailable TIMMIS, DR HOANG Consulting Unavailable TIMMIS, DR HOANG Attending Unavailable TIMMIS, DR HOANG Admitting Unavailable [facility] Primary Care Unava ilable NATE II, AUBREY Consulting Unavailable FILUTZE, SHANTEL Consulting Unavailable TIMMIS, DR HOANG Admitting Unavailable TIMMIS, DR HOANG Consulting Unavailable TIMMIS, DR HOANG Attending Unavailable REQUEST, NONE LISTED Primary Care Unavaila MIKAELA Marti Consulting Unavailable TIMMIS, DR HOANG Admitting Unavailable TIMMIS, DR HOANG Consulting Unavailable TIMMIS, DR HOANG Attending Unavailable [facility] Care Unava ilable DAVIS, KARLI Consulting Unavailable TIMMIS, DR HOANG Admitting Unavailable TIMMIS, DR HOANG Consulting Unavailable TIMMIS, DR HOANG Attending Unavailable REQUEST, DR NONE LISTED Primary Care Unavaila ble DAVIS, KARLI Consulting Unavailable Unavailable Primary Care Provider Unavailjeremias e LIBBY GAITAN Referring Unavailable DARRIN ROSE Primary Care Unavailable Darrin Rose MD Primary Care Provider LIBBY GAITAN Attending Unavailable Allergies Allergy Classification Reported Allergen(s) Allergy Type Date of Onset Reaction(s) Facility (2 sources) cefaclor; Translations: [CECLOR] Drug Allergy [address] [facility] Repository (9 sources) Cefaclor; Translations: [CEFACLOR] Drug Allergy 7 Hives, Rash [facility] [employer] [facility] (9 sources) Cephalosporins (Antibiotic); Translations: [CEPHALOSPORINS] Propensity to adverse reactions to drug 3 Rash [facility] Medications Current Medications Medication Drug Class(es) Dates Sig (Normalized) Sig (Original) Multiple Vitamins-Minerals (THERAPEUTIC MULTIVITAMIN-MINERALS ) tablet (1 source) take 1 tablet by filiberto th once daily Multiple Vitamins-Minerals (THERAPEUTIC MULTIVITAMIN-MINERALS ) tablet Take 1 tablet by mouth daily 0 Active therapeutic multivitamin-minerals (Theragran-M) tablet (7 sources) take 1 tablet by filiberto th once daily therapeutic multivitamin-minerals (Theragran-M) tablet Take 1 tablet by mouth Daily Active take 1 tablet by filiberto th in the morning therapeutic multivitamin-minerals (Thera gran-M) tablet Take 1 tablet by mouth in the morning. Active take 1 tablet by filiberto th in the morning therapeutic multivitamin-minerals (Thera gran-M) tablet Take 1 tablet by mouth in the morning. 0 Active Problems Active Problems Problem Classification Problem Date Documented Date Episodic/Chronic Acute bronchitis (2 sources) Acute bronchitis; Translations: [Acute bronchitis, unspecified] Onset: 5 02-26-2025 Episodic Administrative/social admission (2 sources) Administrative reason for encounter; Translations: [Encounter for administrative examinations, unspecified] Onset: 5 02-26-2025 Episodic Allergic reactions (2 sources) Allergic disposition; Translations: [Other allergy status, other than to drugs and biological substances] Onset: 5 02-26-2025 Episodic Cardiac and circulatory congenital anomalies (2 sources) Congenital heart disease; Translations: [Congenital malformation of heart, unspecified] Onset: 5 02-26-2025 Chronic Developmental disorders (1 source) Unspecified intellectual disabilities; Translations: [UNSPECIFIED INTELLECTUAL DISABILITIES] Onset: Chronic Disorders of lipid metabolism (2 sources) Hyperlipidemia; Translations: [Hyperlipidemia, unspecified] Onset: 5 02-26-2025 Chronic Disorders of teeth and jaw (1 source) Chronic periodontitis, unspecified; Translations: [CHRONIC PERIODONTITIS, UNSPECIFIED] Onset: 7 Chronic Disorders of teeth and jaw (5 sources) Dental caries, unspecified; Translations: [Dental caries] Onset: 7 06-24-2023 Episodic Heart valve disorders (7 sources) Aortic valve disorder; Translations: [Nonrheumatic aortic valve disorder, unspecified] Onset: 2 09-01-2023 Chronic Immunity disorders (1 source) Di Ag's syndrome; 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] Onset: 2 Chronic Immunizations and screening for infectious disease (2 sources) Tuberculosis screening status; Translations: [Encounter for screening for respiratory tuberculosis] Onset: 5 02-26-2025 Episodic Inflammation; infection of eye (except that caused by tuberculosis or sexually transmitteddisease) (2 sources) Eye infection; 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, unspecified eye] Onset: 5 02-26-2025 Chronic Inflammation; infection of eye (except that caused by tuberculosis or sexually transmitteddisease) (2 sources) Blepharitis; Translations: [Unspecified blepharitis unspecified eye, unspecified eyelid] Onset: 5 02-26-2025 Episodic Influenza (4 sources) Influenza; Translations: [Influenza due to unidentified influenza virus with other respiratory manifestations] Onset: 5 02-26-2025 Episodic Other congenital anomalies (3 sources) Marfan's syndrome, unspecified; 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, unspecified] Onset: 7 Chronic Other congenital anomalies (8 sources) Anomaly of chromosome pair 21; 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, unspecified] Onset: 8 07-25-2018 Chronic Other congenital anomalies (3 sources) Marfan's syndrome; Translations: [Marfan's syndrome, unspecified] Onset: 8 Resolved: 8 07-19-2018 Chronic Other congenital anomalies (1 source) Down syndrome, unspecified; Translations: [DOWN SYNDROME UNSPECIFIED] Onset: 2 Chronic Other ear and sense organ disorders (7 sources) Bilateral hearing loss; Translations: [Unspecified hearing loss, bilateral] Onset: 3 09-01-2023 Chronic Other ear and sense organ disorders (7 sources) Hearing loss; Translations: [Unspecified hearing loss, unspecified ear] Onset: 2 09-01-2023 Chronic Other ear and sense organ disorders (5 sources) Impacted cerumen, right ear; Translations: [IMPACTED CERUMEN RIGHT EAR] Onset: 3 Episodic Other ear and sense organ disorders (4 sources) Impacted cerumen of bilateral ears; Translations: [Impacted cerumen, bilateral] 11-02-2023 Episodic Other ear and sense organ disorders (2 sources) Pain of ear structure; Translations: [Otalgia, unspecified ear] Onset: 5 02-26-2025 Episodic Other gastrointestinal disorders (1 source) Dysphagia, pharyngoesophageal phase; Translations: [Dysphagia, pharyngoesophageal phase] Onset: 4 Episodic Other gastrointestinal disorders (2 sources) Oropharyngeal dysphagia; Translations: [Dysphagia, oropharyngeal phase] 11-02-2023 Episodic Other gastrointestinal disorders (2 sources) Dysphagia; Translations: [Dysphagia, unspecified] Onset: 5 02-26-2025 Episodic Other nutritional; endocrine; and metabolic disorders (2 sources) Developmental delay; Translations: [Unspecified lack of expected normal physiological development in childhood] Onset: 5 02-26-2025 Episodic Otitis media and related conditions (8 sources) Other disorders following mastoidectomy, left ear; Translations: [Other disorders following mastoidectomy, bilateral ears] Onset: 2 Episodic Syncope (2 sources) Syncope and collapse; Translations: [Syncope and collapse] Onset: 5 02-26-2025 Episodic Unclassified (2 sources) Unknown / UNK(Unknown) Onset: 7 Past or Other Problems Problem Classification Problem Date Documented Da te Episodic/Chronic Aortic; peripheral; and visceral artery aneurysms (1 source) Aortic root dilatation; Translations: [Thoracic aortic ectasia] Onset: 11-21-2017 Resolved: 07-25-2018 07-25-2018 Chronic Other ear and sense organ disorders (1 source) Otorrhea, right ear; Translations: [OTORRHEA RIGHT EAR] Onset: 03-29-2022 Episodic Other ear and sense organ disorders (7 sources) Impacted cerumen; Translations: [Impacted cerumen, unspecified ear] Onset: 06-29-2022 Resolved: 09-01-2023 09-01-2023 Episodic Other skin disorders (2 sources) Acne; Translations: [Acne, unspecified] Onset: 09-19-2004 02-26-2025 Episodic Viral infection (7 sources) Plantar wart of left foot; Translations: [...] Chanel MD on 10/05/2023 9:55 AM Normal [facility] CBC AUTO DIFFon 11-04-2022 BASO # 0.1 103/ul Normal 0.0-0.1 [facility] Comment on above: Performed By: #### C BC #### [facility] [address] [place] [address] Dr. Amanda Dillon Basophils/100 WBC (Bld) 1.4 % Normal 0.2-2.0 [facility] Comment on above: Performed By: #### C BC #### [facility] [address] [place] [address] Dr. Amanda Dillon EO # 0.0 103/ul Normal 0.0-0.7 [facility] Comment on above: Performed By: #### C BC #### [facility] [address] [address] [address] Amanda Dillon Eosinophils/100 WBC (Bld) 0.6 % Critically low 0.9-7.0 [facility] Comment on above: Performed By: #### C BC #### [facility] [address] [address] [address] Amanda Dillon Erythrocyte distribution width (RBC) [Ratio] 14.2 % Normal 11.0-15.0 [facility] Comment on above: Performed By: #### C BC #### [facility] [address] [place] [address] Dr. Amanda Dillon Hematocrit (Bld) [Volume fraction] 42.6 % Normal 42.0-54.0 [facility] Comment on above: Performed By: #### C BC #### [facility] [address] [place] [address] Dr. Amanda Dillon Hemoglobin (Bld) [Mass/Vol] 14.9 g/dL Normal 14.0-18.0 [facility] Comment on above: Performed By: #### C BC #### [facility] [address] [place] [address] Dr. Amanda Dillon IG # 0.07 10e3/ul Critically high 0.00-0.03 [facility] Comment on above: Performed By: #### C BC #### [facility] [address] [place] [address] Dr. Amanda Dillon IG % 1.1 % Critically high 0.0-0.5 [facility] Comment on above: Performed By: #### C BC #### [facility] [address] [place] [address] Dr. Amanda Dillon LYMPH # 1.5 103/ul Normal 1.2-3.8 [facility] Comment on above: Performed By: #### C BC #### [facility] [address] [place] [address] Dr. Amanda Dillon Lymphocytes/100 WBC (Bld) 23.5 % Normal 20.5-60.0 [facility] Comment on above: Performed By: #### C BC #### [facility] [address] [place] [address] Dr. Amanda Dillon MANUAL DIFF REQ NO Normal [facility] Comment on above: Performed By: #### C BC #### [facility] [address] [place] [address] Dr. Amanda Dillon MCH (RBC) [Entitic mass] 31.1 pg Normal 25.9-34.0 [facility] Comment on above: Performed By: #### C BC #### [facility] [address] [place] [address] Dr. Amanda Dillon MCHC (RBC) [Mass/Vol] 35.0 g/dL Normal 29.9-35.2 [facility] Comment on above: Performed By: #### C BC #### [facility] [address] [place] [address] Dr. Amanda Dillon MCV (RBC) [Entitic vol] 88.9 fL Normal 80.0-94.0 [facility] Comment on above: Performed By: #### C BC #### [facility] [address] [place] [address] Dr. Amanda Dillon MONO # 0.6 103/ul Normal 0.3-0.8 [facility] Comment on above: Performed By: #### C BC #### [facility] [address] [place] [address] Dr. Amanda Dillon Monocytes/100 WBC (Bld) 9.1 % Normal 1.7-12.0 [facility] Comment on above: Performed By: #### C BC #### [facility] [address] [place] [address] Dr. Amanda Dillon NEUT # 4.2 103/ul Normal 1.4-6.5 [facility] Comment on above: Performed By: #### C BC #### [facility] [address] [place] [address] Dr. Amanda Dillon Neutrophils/100 WBC (Bld) 64.3 % Normal 43.0-75.0 [facility] Comment on above: Performed By: #### C BC #### [facility] [address] [place] [address] Dr. Amanda Dillon Platelet mean volume (Bld) [Entitic vol] 9.1 fL Critically low 9.5-13.5 [facility] Comment on above: Performed By: #### C BC #### [facility] [address] [place] [address] Dr. Amanda Dillon PLT 267 103/ul Normal 150-450 [facility] Comment on above: Performed By: #### C BC #### [facility] [address] [place], [place] [address] Dr. Amanda Dillon RBC 4.79 106/ul Normal 4.70-6.10 [facility] Comment on above: Performed By: #### C BC #### [facility] [address] [place], [place] [address] Dr. Amanda Dillon WBC 6.5 103/ul Normal 4.0-11.0 [facility] Comment on above: Performed By: #### C BC #### [facility] [address] [place], [place] [address] Dr. Amanda Dillon Echocardiogram Limited 2D w Doppler w Color Congenitalon 07-13-2022 Pediatric/Congenital Transthoracic Echocardiography (TTE) Report Demographics Patient Name LANEY Guthrie Date of Study 07/13/2022 Date of 1990 Gender Male Age 32 year(s) Race Room Number [id number]^DANI Height: 66.54 inch, 169 cm Corporate ID [id number] Weight: 138.89 pounds, 63 # kg Patient Acct [id number] BSA: 1.72 m^2 BMI: 22.06 # kg/m^2 MR # [id number] [employer] Interpreting [place] Physician Referring Referring Nurse Physician Practitioner [...] Male Age 32 year(s) Race Room Number [id number]^DANI Height: 66.54 inch, 169 cm Corporate ID [id number] Weight: 138.89 pounds, 63 # kg Patient Acct [id number] BSA: 1.72 m^2 BMI: 22.06 # kg/m^2 MR # [id number] 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 Amanda Dillon Basophils/100 WBC (Bld) 1.3 % Normal 0.2-2.0 [facility] Comment on above: Performed By: #### C BC #### [facility] [address] [place] [address] Dr. Amanda Dillon EO # 0.1 103/ul Normal 0.0-0.7 [facility] Comment on above: Performed By: #### C BC #### [facility] [address] [place] [address] Dr. Amanda Dillon Eosinophils/100 WBC (Bld) 0.9 % Normal 0.9-7.0 [facility] Comment on above: Performed By: #### C BC #### [facility] [address] [place] [address] Dr. Amanda Dillon Erythrocyte distribution width (RBC) [Ratio] 14.3 % Normal 11.0-15.0 [facility] Comment on above: Performed By: #### C BC #### [facility] [address] [place] [address] Dr. Amanda Dillon Hematocrit (Bld) [Volume fraction] 44.2 % Normal 42.0-54.0 [facility] Comment on above: Performed By: #### C BC #### [facility] [address] [place] [address] Dr. Amanda Dillon Hemoglobin (Bld) [Mass/Vol] 14.8 g/dL Normal 14.0-18.0 [facility] Comment on above: Performed By: #### C BC #### [facility] [address] [place] [address] Dr. Amanda Dillon IG # 0.03 10e3/ul Normal 0.00-0.03 [facility] Comment on above: Performed By: #### C BC #### [facility] [address] [place] [address] Dr. Amanda Dillon IG % 0.5 % Normal 0.0-0.5 [facility] Comment on above: Performed By: #### C BC #### [facility] [address] [place] [address] Dr. Amanda Dillno LYMPH # 1.4 103/ul Normal 1.2-3.8 [facility] Comment on above: Performed By: #### C BC #### [facility] [address] [place] [address] Dr. Amanda Dillon Lymphocytes/100 WBC (Bld) 26.0 % Normal 20.5-60.0 [facility] Comment on above: Performed By: #### C BC #### [facility] [address] [place] [address] Dr. Amanda Dillon MANUAL DIFF REQ NO Normal [facility] Comment on above: Performed By: #### C BC #### [facility] [address] [place] [address] Dr. Amanda Dillon MCH (RBC) [Entitic mass] 30.5 pg Normal 25.9-34.0 [facility] Comment on above: Performed By: #### C BC #### [facility] [address] [place] [address] Dr. Amanda Dillon MCHC (RBC) [Mass/Vol] 33.5 g/dL Normal 29.9-35.2 [facility] Comment on above: Performed By: #### C BC #### [facility] [address] [place] [address] Dr. Amanda Dillon MCV (RBC) [Entitic vol] 91.1 fL Normal 80.0-94.0 [facility] Comment on above: Performed By: #### C BC #### [facility] [address] [place] [address] Dr. Amanda Dillon MONO # 0.5 103/ul Normal 0.3-0.8 [facility] Comment on above: Performed By: #### C BC #### [facility] [address] [place] [address] Dr. Amanda Dillon Monocytes/100 WBC (Bld) 9.2 % Normal 1.7-12.0 [facility] Comment on above: Performed By: #### C BC #### [facility] [address] [place] [address] Dr. Amanda Dillon NEUT # 3.4 103/ul Normal 1.4-6.5 [facility] Comment on above: Performed By: #### C BC #### [facility] [address] [place] [address] Dr. Amanda Dillon Neutrophils/100 WBC (Bld) 62.1 % Normal 43.0-75.0 [facility] Comment on above: Performed By: #### C BC #### [facility] [address] [place] [address] Dr. Amanda Dillon Platelet mean volume (Bld) [Entitic vol] 9.1 fL Critically low 9.5-13.5 [facility] Comment on above: Performed By: #### C BC #### [facility] [address] [place] [address] Dr. Amanda Dillon PLT 269 103/ul Normal 150-450 [facility] Comment on above: Performed By: #### C BC #### [facility] [address] [place] [address] Dr. Amanda Dillon RBC 4.85 106/ul Normal 4.70-6.10 [facility] Comment on above: Performed By: #### C BC #### [facility] [address] [place] [address] Dr. Amanda Dillon WBC 5.5 103/ul Normal 4.0-11.0 [facility] Comment on above: Performed By: #### C BC #### [facility] [address] [place] [address] Dr. 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 He cannot tolerate an exam or treatment in the clinic. He has had work done under sedation previously at other offices. Dr. Pepper did the exam. Pt has many retained primary teeth. No pain is noted at this time. LG is Bella valadezishman: [phone] [place] request sent. MARTHA MAGAÑA [place]; [place] ----- Signed on Thursday, January 20, 2022 at 3:57:46 PM ----- ----- Provider: Andre Seals DDS -- Clinic: [place] ----- Normal [employer] Coding Summary.on 03-10-2021 Coding Summary. CD:[id number] Gh0bW w+PGhlYWQ+UG1MMAVpI02awYN jpI1SB4kAXD4KBTLCLMAWYB5C YM1tcMX6JLlnQ7TvcoVk NwbmcNTmGS24NOv6CJN1aYfuO EmxbX4ljTTiB3w6ChTrVU69vO 29UOuvXBTjQdS1AeTxhlvqzGR y Z0idQxZvrYNtKid+PHRhYmxlI HdpZHRoPScxMDAlJyBzdHlsZT 9dAq3zVMPtCNPghDltbHXdJsG j m8ftENGbQWxdKP7zyQypQ4Vgt KX0TDAla9f5Yy38tFB+PHRkIH Y0mHviWJegl050EmCxh4osGXT 3 hBZpZQdnKIZ7L80dw5T9QMUlR OCkONC0rAM1yZ2dhWkwofimG1 YuyMBpXvP3DGT5tHIygJ1hgDs n bjamfU3fIkx+V40PZI4DIWHWO V6XUwq0W5RcRdufzCE+PC90YW OoKX22oSVfcNIoe7ymeOj8RaV w YEWpATF0cHitYRbwr5TgAMXvW 14vkEOnv3O2MMQxtWnwiNMgPy EboPO2oJ3mIQiemfxti6qvryt n Ucxej0gwls25yD29W37bQDidG QKzZWM9YEVkKZTxfIznms1gxS 9wIi8+NHhci7pfn9rjhNj6NvL w DOFryuVfpUmeXWJ8r1ZbXi27W 3JgdUznl1SqFcl9al66nWGyf5 Y6wEH0HKlxWYLweO6xSQsrYhS 6 CKGjMsNuuK39sDTfHTwyVz9bn DwofBicZY5yQNXvpieuWTKshD 9fZIQmvQQqrUldYQ3xEOEorgn m l472OwGaLQO3XVKadJXyM5Pvc Y7fFyMtERTbGMChQ3TurABxGB fwZ033VFpiZpQ0UNOyqyFcB6X s ZOEinVyuZaB5b6J2Bd7Vc3Njb drgQSN4YVkgJCT1AlRqBkByRt I9V4PfGec9EXBxiDcpIZ1eE3T h VHIbuooegwrmlPM7EAMfKUQfs G70oQYeYZumFz6mg0E4l562ZT WaCDMznZ82Jm2knUixSREkhPU U qB4mavkii4zwfvjtTpJtFZCvW Pd8DSn6RTAdxVkrNnEpBYZ9Cu H7BAI7cOIqzU9mlKtcznohzU6 w Oyc+C29vpX6dNFP4ONH7uhkyH PAzrpPiXF90UO16S0HmQtugxU FibGU+RPQcmnYniDkxDT4uEfY j k4lwa9EaEMrjU5DbGINeBCiiG no0XDGdICT6tTS2qK3bEVQmHA hzk8A4uEH3U1QqhaTnak8kk5j s FQEdLUcxL14utVTab8T9QBKut QB7EBGakSziEiFeiL62Mrl+PG XdaRrit7RmRgymc6nuz3pemRd 9 ZxUkIIHpqkRvrWoaOEL4l0ZmV v19X37aNKsdVDAbCBJaIKCsRP QxxAymnu8txH6wLw3+PGNvbCB 3 wEV5fQ6oBJGpLcL4CZhzN110G nWqvILzCmrxx2oxt5ksxZb9Fi KwYJByafJykIjyIMO4g0DzZv1 8 F48vIOddATEnYPRbRWTeGNKuo Csstg0tiB8jVy0+PW4oq4fiqo 58sM75jYH+SFJqYYL3wPucVRd w HRDveD3nFCpoHbI5VCMcKuIkf X53mYStGZqxRh0kmPheoPxmBF 0pQDKaynhcz722BmRdo9maVBI w sQCgEZfvHOE6Q71nh1A9NKUqW HPyAIP1wXB2hZ5tdGjkzlartJ UzdGswdoTcwNmcSEtwFGlqJ34 6 IHRvcDsnPlBhdGllbnQgTmFtZ Vd8W1MnJum9UQZtjWwjYN0ezD FfQIazHf5ahJaapXhaZD2fSRW p auqlo338AuBlu6hhRMIwsNOcR OdjAHW6D99vk1A1UWMsPEOwSC M6yYS1pU5gaDaznnhleOUmjPq g nwEkvVqsZHhaYIhjV728LZGep RxrBrMaoyBxCUZyqOR4UH47PL 13ePGnx9V8hQM2I2UuDNCoozw t tjlckOD0LGTzDMWdgN40Cm4mu CzyIt1gAZNbGJL1NXAtxELwT6 MvpV5jFuSlVWZaJYWeU0TycAP t KQmlE672IEiyYmA2NSAklkEpG 6KdYIEdvLypVxX0q2H4Ve5ZY4 O2TI98FV52aZXhk9Q4vED9N1J h THAtskxmjvfoqXR5SYChBYAml K47Au1vrQtcMl1qOGXoSZO9FA TgnLUvT6OlmX4cYiHnGLUkNXV w A2WxcPTsGOqqJ299IHzrPmK6F JVmixOrA7RdREEczVnnJcD1v3 R1Bh3CPHk0QV75TX47tYVxv7T 5 oBT0H8JoVWTgazdhnmooyKQ8Q PInQTYswI77Kj1yfZgaAy7zQH MeCWY4KBWxiJFiI6JyvS3jQqU j FRSoBURoN5GjsMSvXBmeL374W TylFhB9RODfukBhN3ZqNFLdbD muHkL6u3F3Si7HSQNtFR65BQU 5 gTD8OF21UJ53T4DnSlqqdGJay +PHRhYmxlIHdpZHRoPScxMD WaHoYbuMdgPF7nXs3eNOKkZOB v wYqosNPmKaPdz0agKUKeSGkhH U0elSanX6VabLV5RLChg3q8We 50U31oW0NdpRQ+EWTugTW0wVY 0 cW0qFzTlXpX4EIgqE571VgLon TZzNsfyc6kgt8ktbLu4PnE4DC SdrlPnbVsrMQE1l3WcLj26P57 s IHdpZHRoPSIxNSUiIHZhbGlnb x6yfU8xRg8+MNFfqFW9qRP9uL 3cAaXiAnB0EZrkW678EwNdgIK v Yvbou6erb9eyhHi3ZtYaTEJug jBvmOikLQU6e7UmLw67P5FsyT ban9FvSyr2ia06sDOpj4N2mFF 9 Y0ZdSAGfcansgEHceSglKB9vG MUltetlIHYttJ2fUEUtP0u0Gu IgOcL6SQxvL1LkvrN4DQBlfZK g BVusKJN3U67pc6T5PCTfSMFpY BR9zJC4vC6jaUsmrnmgaMEnqE orwtEcyMcoACveVEdzW342KKS v vHeiVRQamI2wLZYfaBYgbHrtY Q9vELIczhmmWgdTUDXNKQYEYA CKKEZVSI8cZudwbWY+PHRkIHN 0 dWtxMWktBGQyrH0vXUDqE1r3N fDyWgW6FOhfM0AgHSQsvzfmWp 80nA5yPrQcZpO8XMjrP7VhctP 6 VJXteZEhAGbpULG5X34td7I2F HDbUGNbZMT9sJK7mM8peUqbor ogbGVmdDsgdmVydGljYWwtYWx p M990LCNfcOdoSwQrXxZqNgC8J Cc7S0ZjHng0TQKqbClfDG0ugT BnOYciSe0wyScbgGlaIY3sRUH p pjcnSRCsaS6pPURxmYDwhBztS H8pXLOkxcvuh694CzLhZHC3QX EvfCVxK7LclI5lXkDkNPQcHSU w L9UhqUQgTWxsH563QWyvIhK0B TLmazAsT5QnFYRxdLxaTvE1u5 V8Nj5pLHBBAFGicjqohQT+PHR k OSL5fImjIMkpFLJhfE4uTPLsW 0q5HaXrTtS0QYjrA2TkJDPmjk rsRs48vK8dDkQdLoB8LAruG5L v axW0ZUNxxDJvPJquVFF3C31do 3X4DURxNSYwDKX1zCT7vT0egW lnbjogbGVmdDsgdmVydGljYWw t CHffS183APYbpWqrLl6buCJ7V 2ScYyx3FGRmjKhyXX4jvRLnVR pyUt1czTkppFdqIB2iDAQppjo w DBHeaN8xAYVajYXjiEabUR2jS VCtnfmlj850UpErMJO2LQKhwV RnQ7KgjD7aHjHlBPWwGPGxI7V l aQVoRFyyA820AEnfMzT0KNCrx aRbO0ZsANEhmOzcKdY3y8L4Ar 0WcDF1sNH4y4V2U7QieJWuTGF 5 SPY4dzmomcb3O2RuEzzsePK+P F24FQVsUL85qRMsoTBac7zcwW u5WmWzKZVkTBN1iLqiXXxrg7J k LWGbF79plPDce9W1AUYswTazn RRvVeFmaAU5jZ8gXYilkxvnb0 aiprbqUsdvy2lecb31vZ27F60 s IHdpZHRoPSIzMCUiIHZhbGlnb i5kqJ2bBi5+UDCtgQO8oQN7bM 6iWlZlQqZ9EYzdI691LzOphSX v Pyfag3lud3tyiMk7GfFsWLEnm jSmnJlnLNV9q9IzKr07G66uGJ dpZHRoPSIyMCUiIHZhbGlnbj0 i bP5bOf4+FG3cc5lczi95mG50r HI+KMZjAKS8tWaxTLddCSTonD 3jIHaiKnH6IFLsAoHhdU93iKS k UEzzCa9vwXcllAbsKA3gIZRai gajg763YmJir3sxSZEslHHeGO uyEHP0U51iz6A6KVRsJOLkSPE 7 iOY2kD8ifWslrcovqNLrkJvur rWnrWruNRtjAYnwE270CHPwoT usKrQowAKyT6xhecIMFU1wPye v dGQ+AORbRQC4zTepVIjlERSre J4wRZKxL3a0BhUnGoB3ZAitR3 RestB0HCIgnRFuHDXxbFOBdM2 l iuoyq7ejplwaWoCmIRUhHNx2D Jc1UUBvdCqxSpEkKWG0JwH6DH A3cJUhoK5nfRimsmdatV6tMet + RklOOjwvdGQ+MNHuOGQ3jVndL OxbMSMnzL6yJBWiT0g0OqCyJl L7FPljT3BrspA2ISOnbRUnLNK w tLQVtP9oupjox2zqxtzpLzSoZ CArJEj5GZh4OWHuqEekQzWwWY J8PdM9OFK7oXJduD4lxHhxjci g qK3xHtq+TVJOOjwvdGQ+PHRkI PO9rIrpNLcdCWEgnV4cMYFaK2 r6JkGgTeJ5TIefR6SqwaY5ITK v gDUfDJYtiLQEnP1dwdfvt5qkw visKsWyUOKyYKs7UYb2GQUxsA giEsIsMFL5DsJ2QDM4vQBjyH8 h tKkneagsiM4hJsp+UJZ3RUP7T C93PI13S9SvYclvwAFmnBQ+PH RhYmxlIHdpZHRoPScxMDAlJyB z dHls (more content not included)... Normal [facility] Main OR Intraoperative Recor don 03-09-2021 Main OR Intraoperative Record IntraOp Document Type FT Summary Primary Physician: Libby Gaitan MD Finalized Date/Time: 03/09/21 08:51:09 Pt. Name: LANEYRACHEL/Sex: 1990 Male Med Rec #: [id number] Physician: Libby Gaitan MD Financial #: [id number] Pt. Type: A Room/Bed: Admit/Disch: 03/05/21 06:22:00 - 03/05/21 10:30:00 Institution: Case Times FT Entry 1 Patient Times In Room 03/05/21 08:30:00 Out Room 03/05/21 09:02:00 Procedure Times Start 03/05/21 08:40:00 Stop 03/05/21 08:55:00 Anesthesia Times Start 03/05/21 08:30:00 Stop 03/05/21 09:02:00 Last Modified By: Flora Lau RN 03/05/21 09:02:09 General Comments: 03/09/2021 Chart opened to review and send charges. [place] FLOOR SPACE ALLOCATOR. Case Attendance FT Entry 1 Entry 2 Entry 3 Case Attendee Jesus Alberto ALEXANDER, Shanti Gaitan MD, Libby Lau RN, Flora Delgado Role Performed Anesthesiologist Surgeon - Primary Setter Off - Primary [employer] [place] [employer]che[employer] Professor Time In 03/05/21 08:30:00 03/05/21 08:38:00 03/05/21 08:30:00 Time Out 03/05/21 09:02:00 03/05/21 09:00:00 03/05/21 09:02:00 Procedure MYRINGOTOMY W/ MYRINGOTOMY W/ MYRINGOTOMY W/ INSERTION OF INSERTION OF INSERTION OF TUBES(Bilateral) TUBES(Bilateral) TUBES(Bilateral) Comments dr newton supervising Last Modified By: Sid RN, Flora Lau RN, Flora Lau RNFlora 03/05/21 09:02:20 03/05/21 09:02:20 03/05/21 09:02:20 Entry 4 Entry 5 Case Attendee Av MARIE, Niyah Friend FLOOR SPACE ALLOCATOR, Renita Johnson Role Performed Staff - Other [...] (If Applicable) PreOp Antibiotic No Time Out Jesus Alberto ALEXANDER, Shanti C, Given Participants Libby Gaitan MD, Sid MARIE, Av Bhatt RN, Phuc Simpson CST, Renita Johnson Time Out Complete 03/05/21 08:39:00 Outcomes Met? [...] and tissue Entry 1 Skin Integrity Intact, [place], Warm, and Skin Abnormality No Dry Outcomes Met? Yes Last Modified By: Flora Lau RN 03/05/21 07:43:56 Post-Care Text: The patient is free from signs and symptoms of injury caused by extraneous objects Patient Positioning FT Pre-Care Text: Identifies physical alterations that require additional precautions for procedure-specific positioning, verifies presence (more content not included)... [facility] Postoperative Documentson Postoperative Documents [id number]#1.00CD:1 27 [facility] Consent for Anesthesiaon Consent for Anesthesia [id number]#1.00CD:1 27 [facility] Discharge Instructionson Discharge Instructions [id number]#1.00CD:1 27 [facility] IntraOperative Documentson 0 03-06-2021 IntraOperative Documents [id number]#1.00CD:1 27 [facility] IntraOperative Documents [id number]#1.00CD:1 27 [facility] Physician Orderon 03-06-2021 Physician Order [id number]#1.00CD:1 27 [facility] Preoperative Documentson Preoperative Documents [id number]#1.00CD:1 27 [facility] H&P Updateon 03-05-2021 H&P Update [id number]#1.00CD: 127 [facility] Inpatient Patient Summaryon 03-05-2021 Inpatient Patient Summary [address] [address] [facility] Clinical Discharge Instructions PERSON INFORMATION Name: RACHEL DAVISON PHYSICIANS Admitting Physician: Libby Gaitan MD Attending Physician: Libby Gaitan MD PCP: DARIUS HOUSTON MD, DARRIN López Discharge Diagnosis: Cognitive impairment; Encounter for mastoidectomy cavity debridement Comment: PATIENT EDUCATION INFORMATION Instructions: Post Op Patient Instructions - FT (CUSTOM) Medication Leaflets: Follow up: With: Address: When: Libby Gaitan Comments: One year MEDICATION LIST Comment: Anisa [facility] Main OR PACU I Recordon 02-17 Main OR PACU I Record PACU Phase I Document Type FT Summary Primary Physician: Libby Gaitan MD Finalized Date/Time: 03/05/21 09:42:43 Pt. Name: RACHEL DAVISON Jerri /Sex: 1990 Male Med Rec #: [id number] Physician: Libby Gaitan MD Financial #: [id number] Pt. Type: A Room/Bed: [place] [address] Admit/Disch: 03/05/21 06:22:00 - Institution: Case Times [...] Jernigan RN 03/05/21 09:42:30 Finalized By: Mariela Jeringan RN Document Signatures Signed By: Mariela Jernigan RN 03/05/21 09:42 Normal [facility] Main OR PACU II Recordon Main OR PACU II Record PACU Phase II Document Type FT Summary Primary Physician: Libby Gaitan MD Finalized Date/Time: 03/05/21 10:48:55 Pt. Name: LANEYRACHEL/Sex: 1990 Male Med Rec #: [id number] Physician: Libby Gaitan MD Financial #: [id number] Pt. Type: A Room/Bed: [place] [address] Admit/Disch: 03/05/21 06:22:00 - Institution: Case Times [...] By: Marbella Fields RN 03/05/21 10:48 Normal [facility] Monitor Recordon 03-05-2021 Monitor Record [id number]#1.00CD:1 27 Normal [facility] Monitor Record [id number]#1.00CD:1 27 Normal [facility] Operative Reporton Operative Report Date of Surgery: [...] Libby Gaitan Jr., M.D. gls Dictated: 03/05/2021 #[id number] Typed: 03/05/2021 #[id number] cc: Libby Gaitan Jr., M.D. *Darrin Osman Jr., M.D. [facility] Comment on above: Result Comment: Elec tronically Signed By: Libby Gaitan MD\.br\Date and Time Signed: 03/05/21 13:36 EDT Outpatient Surgery Discharge Instructionon 03-05-2021 Outpatient Surgery Discharge Instruction [place] [id number] Patient Discharge Instructions PERSON INFORMATION Name: RACHEL [...] Information: You may receive a survey from [employer] asking you to rate your care experience. Your feedback is important and will help us understand what we do well and how we can improve the quality of care we provide to you, your loved ones and our community. It?s an honor to serve you. Thank you for choosing [facility] HERE ARE THE MEDICATION CHANGES THAT OCCURRED DURING YOUR HOSPITAL STAY PATIENT EDUCATION INFORMATION Instructions: Normal [facility] Patient Education - Texton 0 03-05-2021 Patient Education - Text Normal [facility] Progress Note-Physicianon Progress Note-Physician Patient: RACHEL DAVISON Age: 30 years Sex: Male : 1990 Associated Diagnoses: None Author: Newton Jr. DO, Parvez G Postoperative Information Post Operative Note: Post Anesthesia Care Unit. Anesthetic utilized: General. Health Status Allergies: Allergic Reactions (Selected) Severity Not Documented Ceclor- Raised welts. Problem list: All Problems Down's syndrome / SNOMED CT 403592913 / Confirmed Impacted cerumen / SNOMED CT 43972683 / Confirmed Physical Examination Vital Signs 03/05/2021 [...] noted. Plan Transfer/ Discharge: Condition stable. Normal [facility] Comment on above: Result Comment: Elec tronically Signed By: Parvez Newton Jr., DO\.br\Date and Time Signed: 03/05/21 14:56 EDT Progress Note-Physician Patient: RACHEL DAVISON Age: 30 [...] selected or recorded. Procedure history: Histology tonsillectomy (352027139). Myringotomy and insertion of T tube several surgeries (104658919). Social History Social & Psychosocial Habits Alcohol [...] Auto 72.8 % Lymph Auto 19.9 % [place] Auto 6.1 % Eos Auto 0.5 % Basophil Auto 0.7 % Neutro Absolute 5.1 E9/L Lymph Absolute 1.4 E9/L [place] Absolute 0.4 E9/L Eos Absolute 0.0 E9/L Basophil Absolute 0.0 E9/L . Plan [place] [employer]esthesi[employer] (ASA) physical status classification: Class II. Anesthetic Preoperative Plan Anesthesia: General. . Anesthetic plan, risks, benefits, and alternatives discussed with the patient and/or family. Patient verbalized understanding. Adverse reactions, complications, and alternatives discujssed. Consent signed and on chart.. Airway: MP IV, Normal [facility] Comment on above: Result Comment: Elec tronically Signed By: Parvez Newton Jr., DO\.br\Date and Time Signed: 03/05/21 08:29 EDT Coding Summary.on 03-02-2021 Coding Summary. CD:[id number]:[id number] Gh0bW w+PGhlYWQ+DL7IYRGmL54ciQC ieS2FA1eGLV3ZRVVWXGEEKZ3K SZ9xyLF5VReaQ5BlgkYj XfivgLFpKF72ISv9CLS2cDozB PleaL6bmOKxE9z6VlOpCZ08dS 88YTvvYDQpUjY0IsOpzhvzjEY y U6jtUrQmyUSlCwl+PHRhYmxlI HdpZHRoPScxMDAlJyBzdHlsZT 1tGa4mAJRyUKEsqEsyyWFaYoS j v1qaTNCuKDpqQW2nvMtzW0Qsv SN1PEYsc0y4Da25tEB+PHRkIH J8tZtwKEcmt132CvMcc5idNEP 3 eIHsJOigOHU6E20vc7X6CPPjS KIkNAM8dRN4jV5lsWvxhfdtO0 CozGRmFrO0TWU3pHYbvN7rnVp n ygwqhO4nHnb+R70RSR4BLMZBF P6RHtj7C4AsFhblrBV+PC90YW GqFR90iKNueXSsu9svdEn6RwB w IQYoKBP0aLpjPDfsc8VfYMQxS 37azQShz3O3DYAgtZguiEAxEn SzkNM8yD0sQKwfxbrla2yzqye n Udgcl6mguo03xD25G83wJSwsO DYcSQA2VQEuEQPzqTnoek7txV 9wIi8+WVzip9znc2sblWt2OmH w TQNzdtKcmThlAVF1p3EaYw39V 1FfpGwds6GqLvu3jz29eBYrj4 N6cDB7CJkwPQDedJ0sWWgjArL 6 SSNiGtMkqS98dWMlKUbuXb1on UvilHpyXG8hZIUuwqtcENJzzJ 4pMWWsrKFaaHapMT7oUYZerjk m u675EbAbHQF6XVIgmNGiV0Zxb N5bIjKqZBPnVPXjS7KaiEZtGX uvP857UXfgMvP1IWBfkhEoZ0H s OTLthJqkIeH8q7U6Sb9Ic2Bgk ijuRZG7OFhbHCE2ZmT2VeArLr Q9T9GoRep4ARMcrOcgZD1kZ0I h HFZfrxphmkywjQX5FMOvLRMex C09dAHzRKmuEn9st6S0n077XM LjBLPprP97Ll0pqVclTDRhlUU U iQ6rbddlw5crtgdwIdYfJAFsG An5UEt3VNLmwNwuJcTwGOW5Ff W3JHI9eMDlhL8qiKolcqkjsT0 w Oyc+G97guA1vHSB4RSW7wnbtK XMxhtQpDF84QG17F0CcSafuwL FibGU+XMDqmjDdaPodFH2iQnR j r5xip5XlIIqwF7VgASDhNIteK iy3FJCdVEE8jJQ2rY5cISAnKB yhc7A1kGN1Y6WionKnmb2we2t s CUNcKJwwU45tfUBgf7L0UBYxe GQ2WZWcyUqoXrSdpT50Inf+PG PbnRdsv5ToGqqah8wep7azxQo 9 LiFeGBKxdzIoxOxdFWW9n4NgY j30W62eTSknSEQqCHOdLWCiET VqoVrhyb9ndK3uQs4+PGNvbCB 3 eCK8lD9rIVXeWrF8SRadO961D bXlcASxYagcv0ddu1enoVi1Ui UmPDLprtXcqHbrDOV1j1SbFz4 8 Y84hCKcvSJOiLWOgZGCcWKAns Wggdd4gxV4nRe0+SR0jh5fldg 35oE90lXW+OYSoZZC6aLcxBGb w FIAgzG1vCPqjNfZ2WKPjKjEho N50xCPmYKjlJk3ncOzkoHmnHC 2sVUZlqdqwv648HrJlh8mwOTV w jDVoPTtzEWE3E16pe4D4FNCrK EZtXGZ1uBC8sH4qzRirvxzquY DpyNsvafCidVmrOZpvZTgaN66 6 IHRvcDsnPlBhdGllbnQgTmFtZ Ug6R7AsNwz9MVXndSblWJ3xqR AfYGjgLy9zuPbyuSyfFT8cEQE p okndj256NlSwv9tkWQGukFIcS CrzORU3X72kp0X7EUMjXCPxKJ A4wEH4zR5glIzphozlgCKqcIt g thKncLbiCNqzXZuzY294CQSfm JmgGyAsylKjCTJbnOB6JR51EX 89qWSaz1Y5aTB0A8QaEGKrlwm t rmpweZY6NIIzAJQnxS84Cc8rl QkeBm2nBEGjEDO7FPYxzTNfJ3 UhkB4lQnReUCZbWDJxQ7JecFM t MXmxH363BNsdGgF7BSEomkCcX 0CbMOClhFcvXrP6u0E8Vt0KA9 E4TE65NO51lLCpt7A4uHK0R8I h NSEiqyoivxehsQN2UPXbUBBpf N10By6wzRdqIe3aWHUfAAZ2ZZ BkiWUyK7SkyL5cRvKaCBHaCDN w U4XrhRRtILjiM864CKoxSbD2Z AWpabCzE9XhWOIgzOspOcX7n0 F5Fz4NQDw3IX82PB39eUKtx4F 5 iVE9P4ArPAFsjsjiezeshYT5V HAzRUTweI05Uo0hbPpmWf8lTY FqDJX1KUQmmMEwJ3JyvP7nGjO j OGXoMULlN6ZzwJQfRIhtE529I WprBpF5IXDrtyCpM8TkPURjiK zyAdI1g0X7Jt6SUYHoCV98MYW 5 nZY8MI34DS15G6MnNiimbPWdz +PHRhYmxlIHdpZHRoPScxMD QlAoVuuJxxWL9uOe7sMNFnOHR v fXdgaUElUuYey9wfUBSzOUisF Z3vpSxnN2UpkPR5HEPqj1x5Ps 85J64mX5SqkCM+AZOmuNQ2xJM 0 mU5hVgDjTxX5HLhgI102RjFue XVqGnpfx4mep1exnCb9AwB8HE BnbbXxiPfzGFW7s2WoNz05T84 s IHdpZHRoPSIxNSUiIHZhbGlnb l7iwU9tUj4+JWKxnHH8aMO0yE 3qWdMkQnW9RHodZ638YcMmdGO v Lehcr9hba8ypwTh0XgIfCVFug kFdmSclEQB1f5JqXn49V6SybW qht4AoFna5te60oUSax5A8uJM 9 Y9MwHNMtczmweIQemBcqBD7rG QCimeqyFZAbbA6wOXCmT4j7Be SeKnQ1NCqiS0ClpgV1VMWhyVD g UUeyYKT7J74rd1W3VGWuJJEcZ KC2nFW7kS1snZuhvsclcIOwvS qeiwUzxCwbKGvrDOsvO562ZQJ v cAkoJYImfN6fWAWpyUMueMdxZ Q0lVVZaeybeUnjFCSFLHUTZRW LODWNFRN8kJdkpdIU+PHRkIHN 0 eJjtRRzkLNSmzU5pTEVfX2p1L tPvMrP8BDheA8MsBEUneihrLf 79qR4bXvFiEvV1YEsxL5NezhP 6 WWWtfQRyLJlgTGC0D27dl7Q5M YQyTEJaXYU0hZC0kE2ntZzlkg ogbGVmdDsgdmVydGljYWwtYWx p T485OVPzcKhtCjLeFhHkHgE5T Os8Y1ObCvq3UMPllPxmPT5blG GaZJrlJa5jtAnynSilNL5dPAH p vudnKKBrnQ5cQYSipQHmtEakV P0lZDNytajzh754FiLfGIH1VJ ToeGLkJ0DluC9vHzCqXPSdVBX w A3FlaNWwVNvaR296DGxkCeE6H ZQmzeRgZ8XjMILofRgeAmT4t2 U5Vt5jMCLPJXOtgadikNM+PHR k CGI5zTakLJuhSONreH3cMNBhI 9z7VwDnLnG0QSgzA8HeATQpil bgOj11dR3kLyKhWdF2PSwqC9O v xjJ3EVBbyIRpOZbkCRZ5I92qi 1X5OGYsBNJeFJJ9lJO7oY0dhU lnbjogbGVmdDsgdmVydGljYWw t NLknT205GSOmuSycCb6nrGN7I 2IyLrl2NJNjzCxrHZ0ejXKmIV tjJo8vcWzklYzcNX6cICAdjuy w UFMuhI7cFYMsbSShjCzuBO0fM DEeowcdo248WiBoYCR8WUSteU CtA2NoqN9jUcBoGVBkIBKlG8Y l yTDuQUyeU857HGdxFyJ2SFAof jUpO7MrVCOinBonWwU7j2P7Yh 5MxBCmKLSdFE61KL72HW16O8B y PjwvdGFibGU+PHRhYmxlIHdpZ CBxPIydPIVzWdLixDhlCG5dPu 7tJGViPLSdzOvrhDZgOoOju7b s JDPjDUvmCT9mlYgnJ0SijXB4Z MNuh6c2Dm18C84tZ5OtuNB+PG OrpXW9vBI9rQ0bEtWnNnF2XJt p K036WwTgyBGdFscvv1jaz7lkj Lq3WuNkLTXkqeFcmJgiKWJ7a1 EkNp24T11wNDgpCSDxFDQoJJK i SWMuaNmuet0zmU7tDa0+PGNvb MR8tDI6hE9dCdTdDtM2KSvmN0 49VfQhkQGuNfpqR44dH2HcgAF + YYYaDcf2KXEvkMybXA4cgSGrD SsfIy8ePAY6BpPwFcFbSSpfF8 WdFAHswgwdatzovEY0UUXoTWY w hM29Kv6efJjsXn6oKDScIWH0K GFlaTRrH2UozU8yYbVeIUJtYW ViY5FjrADpBKcuW143YWcuSyI 7 XXGhquWjV5AmFZZwuMvwQyT9y 9Q5Io4LdRltiALcSZ2fFsWkOD a9U2UbTpe4PFFouNmjFX9tuNK k VHobMk4yhXaclSpoCN2qXXPxr cgpy039JvApu5enYKCphCFtIW bwJCQ3N51lr9I4AKRoVJIdXCF 7 bOI2nD8riXvjtapfwBEikZkxu tEptAymNXduAHfgN940ARLljP yhFePMZrd5T8NaZvl6JSMbsWs s WA0yzOUiJBunGa7eiUarcKecN C0yTPZtuixti255QgDzl7jkXE GjmDYfSAdwQVV2R28bc0X0PRG w XEAkILO9wHY0vI9gmQcjecyvm GVmdDsgdmVydGljYWwtYWxpZ2 47TJPqeYbjZr0REcl4U2FtEje 0 GETkfBtjPQ3njPJiUGipNy8pz QhxzTozDC3pLAMrfhhza049Zl Gix9xbDMXpvUDrBEvwHPD3I55 s u6O8GPXhBXEhBUP9jBI3hB8we GlnbjogbGVmdDsgdmVydGljYW rpQZmoM387NATzjBovJiPqhQZ y OjwvdGQ+XP81xt80T4DbVsuwM ff6WZZeTDE3fDI7fC0qEXEyBN vzc1B8fYZ1W8AubtIxbe8xu9u s YXBz (more content not included)... Normal [facility] Immunization Recordson 02-23 Immunization Records [id number]#1.00CD:1 27 Normal [facility] Auto Diffon 02-20-2021 Basophils/100 WBC (Bld) 0.7 % Normal 0.0-2.0 [facility] Comment on above: Order Comment: Order Added by Discern Expert. Performed By: #### 2 [id number], [id number] ####[facility] [id number] [place] [address] Basophils/Leukocyt es Auto (Bld) [Pure # fraction] 0.0 E9/L Normal 0.0-0.2 [facility] Comment on above: Order Comment: Order Added by Discern Expert. Performed By: #### 2 [id number], [id number] ####[address] [address] Eosinophils/100 WBC (Bld) 0.5 % Normal 0.0-8.0 [facility] Comment on above: Order Comment: Order Added by Discern Expert. Performed By: #### 2 [id number], [id number] ####[address] [address] Eosinophils/Leukoc ytes Auto (Bld) [Pure # fraction] 0.0 E9/L Normal 0.0-0.5 [facility] Comment on above: Order Comment: Order Added by Discern Expert. Performed By: #### 2 [id number], [id number] ####[address] [address] Lymphocytes/100 WBC (Bld) 19.9 % Normal 14.0-50.0 [facility] Comment on above: Order Comment: Order Added by Discern Expert. Performed By: #### 2 488069, [id number] ####[address] [address] Lymphocytes/Leukoc ytes Auto (Bld) [Pure # fraction] 1.4 E9/L Normal 1.0-4.0 [facility] Comment on above: Order Comment: Order Added by Discern Expert. Performed By: #### 2 077828, [id number] ####[address] [address] Monocytes/100 WBC (Bld) 6.1 % Normal 4.0-14.0 [facility] Comment on above: Order Comment: Order Added by Discern Expert. Performed By: #### 2 090816, [id number] ####[address] [address] Monocytes/Leukocyt es Auto (Bld) [Pure # fraction] 0.4 E9/L Normal 0.2-1.0 [facility] Comment on above: Order Comment: Order Added by Discern Expert. Performed By: #### 2 690536, [id number] ####[place] [id number] [place] [address] Neutrophils/100 WBC (Bld) 72.8 % Normal 36.0-75.0 [facility] Comment on above: Order Comment: Order Added by Discern Expert. Performed By: #### 2 777726, [id number] ####[address] [address] Neutrophils/Leukoc ytes Auto (Bld) [Pure # fraction] 5.1 E9/L Normal 2.0-7.5 [facility] Comment on above: Order Comment: Order Added by Discern Expert. Performed By: #### 2 [id number], [id number] ####[address] [address] CBC w/ Auto Diffon 1 Erythrocyte distribution width (RBC) [Ratio] 14.3 % High 10.9-14.2 [facility] Comment on above: Performed By: #### 2 [id number], [id number] ####[address] [place] [address] Hematocrit (Bld) [Volume fraction] 44.0 % Normal 37.7-49.0 [facility] Comment on above: Performed By: #### 2 [id number], [id number] ####[address] [place] [address] Hemoglobin (Bld) [Mass/Vol] 14.8 g/dL Normal 13.5-17.5 [facility] Comment on above: Performed By: #### 2 [id number], [id number] ####[address] [place] [address] MCH (RBC) [Entitic mass] 31.1 pg Normal 27.0-34.0 [facility] Comment on above: Performed By: #### 2 [id number], [id number] ####[address] [address] MCHC (RBC) [Mass/Vol] 33.6 g/dL Normal 31.4-36.0 [facility] Comment on above: Performed By: #### 2 [id number], [id number] ####[address] [address] MCV (RBC) [Entitic vol] 92.4 fL Normal 80.0-100.0 [facility] Comment on above: Performed By: #### 2 [id number], [id number] ####[id number] Platelet mean volume (Bld) [Entitic vol] 7.3 fL Normal 6.4-10.8 [facility] Comment on above: Performed By: #### 2 [id number], [id number] ####[id number] Platelets (Bld) [#/Vol] 285.0 E9/L Normal 150.0-500.0 [facility] Comment on above: Performed By: #### 2 [id number], [id number] ####[id number] RBC (Bld) [#/Vol] 4.8 E12/L Normal 4.3-5.9 [facility] Comment on above: Performed By: #### 2 [id number], [id number] ####[id number] WBC corrected for nucl RBC Auto (Bld) [#/Vol] 7.1 E9/L Normal 4.0-11.0 [facility] Comment on above: Performed By: #### 2 645430, [id number] ####[address] [address] Consent for Treatmenton 06-0 Consent for Treatment [id number]:12 7 Normal [facility] Consent for Procedure/Surger yon 02-18-2021 Consent for Procedure/Surgery [id number]:1 27 Normal [facility] Operative Reporton Operative Report MR#: [id number] [facility] Pt. Name: Rachel Davison Room #: 0C Discharge 05/17/2017 Date: Birthdate: 1990 OPERATIVE REPORTDATE OF SURGERY: 05/17/2017SURGEON: Darian Jones D.D.S.Saw the patient in OR on May 17, 2017 for the dental treatment.SURGEON: Darian Jones D.D.S.JELLY FILTER TENDER: Ariadna Geiger DM.D.TYPE OF ANESTHESIA USED: General anesthesia given by Dr. Trimble andsupervised by Dr. Olmedo.PREOPERATIVE DIAGNOSIS: Dental caries, periodontitis.PROCEDURE PERFORMED IN OR: The patient was brought to the OR andtransferred to the table in a supine position. General anesthesia wasinduced and the airway was supported by endotracheal intubation. Thepatient was prepped for the procedure in the normal fashion. Cfbx-ezwjzx-icum were exposed including 8 posterior PAs, 8 anterior PAs and 2bitewings and sent for processing. A dental prophyaxis was performed with aCavitron and hand scalers. Upon completion of the prophy, worship of#2, #3, #I, #23, and #24were completed. Extraction performed for #15 undergeneral anesthesia.POSTOP PROCEDURE AFTER DENTAL TREATMENT: The patient was awakened in theOR and then taken to PACU where he was discharged in good condition.Blood loss: minimalElectronically Signed by:Darian Jones D.D.S. 05/24/2017 09:59 A Darian Jones D.D.S. I was present for the entire procedure. Date Dict: 05/18/2017/07:10 P/Ariadna Geiger, DMDDate Trans: 05/19/2017 05:00 A/[id number] Normal [facility] Vital Signs Date Time Vital Sign Value Performing Clinician Sol tenorio 02-26-2025 09:25-0400 Body height 167.6 cm Libby Gaitan MD Work Phone: [facility] 02-26-2025 09:25-0400 Body mass index (BMI) [Ratio] 22.6 kg/m2 Libby Gaitan MD Work Phone: [facility] 02-26-2025 09:25-0400 Body weight 63.5 kg Libby Gaitan MD Work Phone: [facility] 02-26-2025 09:25-0400 Diastolic blood pressure 67 mm[Hg] Libby Gaitan MD Work Phone: [facility] 02-26-2025 09:25-0400 Heart rate 71 /min Libby Gaitan MD Work Phone: [facility] 02-26-2025 09:25-0400 Systolic blood pressure 120 mm[Hg] Libby Gaitan MD Work Phone: [facility] 11-02-2023 10:27-0500 Body height 167.6 cm Libby Gaitan MD Work Phone: [facility] 11-02-2023 10:27-0500 Body mass index (BMI) [Ratio] 23.89 kg/m2 Libby Gaitan MD Work Phone: [facility] 11-02-2023 10:27-0500 Body weight 67.13 kg Libby Gaitan MD Work Phone: [facility] 11-02-2023 10:27-0500 Diastolic blood pressure 72 mm[Hg] Libby Gaitan MD Work Phone: [facility] 11-02-2023 10:27-0500 Systolic blood pressure 124 mm[Hg] Libby Gaitan MD Work Phone: [facility] Healthcare Encounters Encounter Date Encounter Type Care Provider Facility Start: 02-26-2025 End: 02-26-2025 Bamboo flowssky Gaitan MD Work Phone: [facility] Start: 02-26-2025 End: 02-26-2025 Bamboo flowssky Gaitan MD Work Phone: [facility] Start: 02-26-2025 End: 02-26-2025 ambulatory LIBBY GAITAN Not Available Start: 02-26-2025 End: 02-26-2025 Office outpatient visit 25 minutes Libby Gaitan MD Work Phone: [facility] Comment on above: Bilateral impacted c erumen (Primary Dx); ETD (Eustachian tube dysfunction), right Start: 11-02-2023 Bamboo flowssky nicole MD Work Phone: [facility] Start: 11-02-2023 Bamboo flowssky nicole MD Work Phone: [facility] Start: 11-02-2023 End: 11-02-2023 Office outpatient visit 25 minutes Libby Gaitan MD Work Phone: [facility] Comment on above: Bilateral impacted c erumen (Primary Dx); Oropharyngeal dysphagia Start: 10-29-2023 Chart abstracting Libby jaramillo MD Work Phone: [facility] Start: 10-05-2023 End: 10-06-2023 ambulatory LIBBY GAITAN [facility] Start: 06-24-2023 Admission to [facility] Anna Ferrell DDLiliana Work Phone: [facility] Start: 11-10-2022 Encounter for preprocedural laboratory examination DR LIBBY GAITAN [facility] Start: 11-09-2022 End: 11-09-[address] LIBBY GAITAN Facility:[facility] Start: 11-04-2022 End: 11-05-[address] LIBBY GAITAN Facility:[facility] Start: 11-04-2022 End: 02-17-2023 Encounter for preprocedural laboratory examination DR LIBBY GAITAN Facility:[facility] Start: 07-13-2022 End: 07-14-2022 ambulatory DARRIN Salazar [facility] Start: 07-13-2022 End: 07-13-2022 Subsequent hospital visit by physician Jack Salguero Echo Rm 1 [facility] Start: 03-23-2022 End: 03-23-[address] LIBBY GAITAN Facility:[facility] Start: 03-17-2022 End: 03-18-[address] LIBBY GAITAN Facility:[facility] Start: 01-20-2022 End: 01-25-2022 ambulatory UNKNOWN PROVIDER Facility:[facility] Start: 01-20-2022 End: 01-25-2022 Patient encounter procedure Mayela John [facility] Work Phone: 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 [address] [place] [id number] Libby Gaitan MD [address] [facility] [address] [place] [address] [facility] Start: 11-02-2023 End: 11-02-2023 Patient encounter procedure 11/02/2023 10:20 AM EST Office Visit [facility] [address] [facility] [address] [place] [id number] Libby Gaitan MD [address] [facility] [address] [place] [address] [facility] Start: 05-20-2023 Influenza vaccination Influenza Vaccine (#1) [facility] Start: 04-19-2022 Influenza vaccination Flu vaccine (#1) [facility] Start: 2016 HPV Vaccine (optional start 27-45 years) HPV Vaccine (optional start 27-45 years) [facility] Start: 2008 Tetanus vaccination Tetanus (Td) Booster [facility] Start: 2007 Hepatitis C screening [facility] Start: 2007 Tetanus + diphtheria + acellular pertussis vaccine (product) Tdap [facility] Start: 2004 HIV screening [facility] Start: 2001 Depression Screen Depression Screen [facility] Start: 2000 DTaP/Tdap/Td vaccine (6 - Tdap) DTaP/Tdap/Td vaccine (6 - Tdap) [facility] Start: 04-15-1997 Varicella vaccine (2 of 2 - 2-dose childhood series) Varicella vaccine (2 of 2 - 2-dose childhood series) [facility] Start: 1994 COVID-19 Vaccine (1) COVID-19 [facility] Start: 01-06-1990 COVID-19 Vaccine (#1) COVID-19 Vaccine (#1) [facility] DENTAL RESTORATIONS DENTAL SAADIA RATIONS Routine scheduled [facility] Immunizations Immunization Date Immunization Notes Care Provider Fa cility 08-03-2010 influenza virus vacc ine, unspecified formulation Libby Gaitan MD Work Phone: [facility] Payers Date Payer Category Payer Medicare (Managed Care) [employer] [id number] 2022 Medicare [employer]AGE [employer]AGE [id number] 2022-Present [address] [place] [id number] 2017 Medicaid [id number] 1989 Unknown [id number]. 732 1989 Unknown [id number]. 175 1989 Unknown [id number] [id number]. 593 1989 Unknown [id number] [id number]. 593 1989 Unknown [id number] [id number]. 1286 1989 Unknown [id number] [id number]. 1259 1968 Unknown [id number] [id number]. 593 1968 Unknown [id number] [id number]. 593 1959 Medicaid [id number] 1959 Medicare [id number] 1959 Medicare [id number] Medicare [id number] Social History Date Type Detail Facility Tobacco smoking status NHIS [facility] Start: 1990 Sex Assigned At [facility] on file [facility] Start: 07-13-2022 End: 09-01-2023 Tobacco smoking status NHIS Never smoked tobacco [employer] Phone: History of tobacco use Passive smoker [employer] Phone: Start: 07-13-2022 End: 09-01-2023 Tobacco use and exposure Smokeless tobacco non-user [employer] Phone: Start: 07-13-2022 Tobacco Comment parents smokes outsi de [employer] Phone: Start: 07-03-2022 End: 07-13-2022 Exposure to SARS-CoV-2 (event) Not sure [employer] Start: 09-06-2023 End: 01-04-2024 Gender identity Not on file [facility] Start: 09-10-2023 End: 01-04-2024 Alcohol intake Lifetime non-drinker (finding) [facility] Start: 09-06-2023 End: 01-04-2024 History of Social function [facility] Start: 1990 Sex assigned at Male [facility] Start: 12-29-2023 Gender identity Identifies as male gender (finding) [facility] History of Present illness Narrative 02-26-2025 Libby Gaitan MD - 02/26/2025 9:20 AM EDT Note Date & Type Note Facility 02-26-2025 History of Presen t illness Narrative Subjective Patient ID: Rachel Davison is a 34 y.o. male who presents for Cerumen Impaction (Ear cleaning) Anthony R/O cerumen under anesthesia 11/2023. RT TIP&P, dry at that time. Review of Systems All other systems reviewed and are negative. Family History Problem Relation Name Age of Onset No Known Problems Mother No Known Problems Father Active Ambulatory Problems Diagnosis Date Noted Aortic valve disorder 06/29/2022 Bilateral hearing loss 09/01/2023 Down syndrome 11/21/2017 Hearing loss 06/29/2022 Plantar wart of left foot 06/29/2022 Acne 09/19/2004 Acute bronchitis 02/26/2025 Blepharitis 02/26/2025 Congenital heart disease 02/26/2025 Developmental delay 02/26/2025 Dysphagia 02/26/2025 Ear pain 02/26/2025 Encounters for administrative purposes 02/26/2025 Eye infection 02/26/2025 Hyperlipidemia (CMS/HCC) 02/26/2025 Influenza 02/26/2025 Influenza-like illness 02/26/2025 Marfan's syndrome 02/26/2025 Other allergy status, other than to drugs and biological substances 02/26/2025 Tuberculosis screening 02/26/2025 Syncope and collapse 02/26/2025 Resolved Ambulatory Problems Diagnosis Date Noted Impacted cerumen 06/29/2022 Past Medical History: Diagnosis Date Aortic heart murmur Bilateral hearing loss, unspecified hearing loss type Ceruminosis, bilateral COVID 02/2022 DiGeorge's syndrome ([facility]/HCC) Down's syndrome Marfan syndrome ([facility]) Past Surgical History: Procedure Laterality Date ADENOIDECTOMY OTHER SURGICAL HISTORY 11/29/2023 r/o cerumen under anesthesia, Timmis TONSILLECTOMY TYMPANOSTOMY TUBE PLACEMENT Allergies Allergen Reactions Cefaclor Hives and Rash Cephalosporins Rash rash Current Outpatient Medications on File Prior to Visit Medication Sig Dispense Refill therapeutic multivitamin-minerals (Theragran-M) tablet Take 1 tablet by mouth Daily No current facility-administered medications on file prior to visit. Objective Last Recorded Vitals Vitals: 02/26/25 0925 BP: 120/67 Pulse: 71 ENT Physical Exam Constitutional Appearance: patient is uncooperative; Ear Ear Canals: bilateral ear canals impacted cerumen observed; Ear comments: Pt unable to tolerate attempt to clean ears Respiratory Inspection: breathing unlabored; normal breathing rate; Auscultation: breath sounds are clear; Cardiovascular Inspection: extremities are warm and well perfused; no peripheral edema present; Auscultation: regular rate and rhythm; Assessment/Plan Diagnoses and all orders for this visit: Bilateral impacted cerumen ETD (Eustachian tube dysfunction), right Proceed with anthony R/O cerumen under anesthesia as cannot be cleaned in the office documented in this encounter [facility] History of Present illness Narrative [...] shared with mom documented in this encounter [facility] Clinical Note 11-09-2022 Note Date & [...] the recovery room in good condition. [facility] Clinical Note 03-23-2022 Note Date & Type [...] to the recovery room in good condition.. [facility] Signed and Approved by: DR LIBBY GAITAN 03/30/2022 08:06:00 [facility] History of Present illness Narrative 01-20-2022 Mayela Lopez RDH - 01/20/2022 1:38 PM EDT Note Date [...] is noted at this time. LG is Bella valadezishman: [phone] Tx request sent. MARTHA ALEJO [place]; OR ----- Signed on Thursday, January 20, 2022 at 3:57:46 PM ----- ----- Provider: Andre Seals DDS -- Clinic: [place] ----- documented in this encounter [facility] History and physical note 02-18-2021 Note Date & Type Note Facility 02-18-2021 Note [id number] [facility] Evaluation note Note Date & Type Note Facility Evaluation note Diagnosis Caries- Primary Unspecified dental caries documented in this encounter [facility] Evaluation note Note Date & Type Note Facility Evaluation note Diagnosis Bilateral impacted cerumen- Primary Impacted cerumen Oropharyngeal dysphagia Dysphagia, oropharyngeal phase documented in this encounter [facility] Evaluation note Note Date & Type Note Facility Evaluation note Diagnosis Bilateral impacted cerumen- Primary Impacted cerumen ETD (Eustachian tube dysfunction), right documented in this encounter [facility] Summary [...] Referral Specialty Diagnoses / Procedures Referred By Luna ugalde Referred To Contact Anesthesiology Diagnoses Caries Kj Boss, DDS [address] [place] [id number] [facility] PRE SURGICAL EVAL [address] [place] [address] Referral ID Status Reason Start Date Expiration Date V isits Requested Visits Authorized [id number] Authorized 06/24/2023 06/24/2024 1 1 Scheduling Instructions [...] and content) DATE CREATED AUTHOR 03/15/2018 [facility] DATE CREATED AUTHOR AUTHOR'S ORGANIZ ATION 03/11/2021 [facility] DATE CREATED AUTHOR AUTHOR'S ORGANIZ ATION 01/26/2022 [facility] [employer] [facility] DATE CREATED AUTHOR AUTHOR'S ORGANIZ ATION 07/14/2022 [facility] DATE CREATED AUTHOR AUTHOR'S ORGANIZ ATION 12/04/2022 [facility] DATE CREATED AUTHOR AUTHOR'S ORGANIZ ATION 10/08/2023 [facility] DATE CREATED AUTHOR AUTHOR'S ORGANIZ ATION 02/27/2025 [facility] Specialists EPIC Care Teams (unrecognized sec tion and content) 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 Printer Apprentice Relationship Specialty Start Date End Date Darrin Rose PCP - General 11/21/17 Job Printer Apprentice Relationship Specialty Start Date End Date Darrin Rose MD [address] [place] [address] PCP - General Family Medicine 03/14/23 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 Printer Apprentice Relationship Specialty Start Date End Date Darrin Rose MD [address] [place] [address] PCP - General Family Medicine 03/14/23 Job Printer Apprentice Relationship Specialty Start Date End Date Darrin Rose MD [address] [place], [place] [id number] PCP - General Family Medicine 03/14/23 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 [facility] [employer] [facility] [facility]. provides no warranty or guarantee of the accuracy or completeness of information in this document.
--- OUTSIDE RECORDS SUMMARY | 2025-03-21 08:10 | XMS_ITS | Encounter Summary ---
Author Organization [facility] Address [address] [place] [address] Care Team Providers Care Chief Drafter Name Role Phone Garth Rose MD Primary Care Provider [phone] Encounter Details Date Type Department Care Team (Late st Contact Info) Description 10/05/2023 External Result Encounter [facility] [place] [address] [place] [address] Libby Becker MD [address] [facility] [address] [place] [address] Social History Tobacco Use Types Packs/Day Years [...] on file documented as of this encounter Procedures Procedure Name Priority Date/Time Associated Diagnosis Comments SWALLOW MOTILITY FUNCTION 10/05/2023 9:56 AM EST documented in this encounter Results * SWALLOW MOTILITY FUNCTION (10/05/2023 9:56 AM EST) Anatomical Region Laterality Modality Radiographic Elena ging 10/05/2023 9:56 AM EST Narrative 10/05/2023 9:55 AM EST THIS EXAM WAS PERFORMED AT [facility] CLINICAL INFORMATION: Difficulty swallowing. Oropharyngeal dysphagia TECHNIQUE/PROCEDURE: [...] Sohail Chanel MD on 10/05/2023 9:55 AM Procedure Note Radiology, Radiologist, MD - 10/05/2023 THIS EXAM WAS PERFORMED AT [facility] CLINICAL INFORMATION: Difficulty swallowing. Oropharyngeal dysphagia TECHNIQUE/PROCEDURE: Speech pathologist was present for the duration of the procedure. Various consistencies of barium containing substances were provided withlateral view. Reference air kerma: 2.2 mGy IMPRESSION: 1. No evidence of aspiration. Intermittent trace penetration with thinconsistency by straw. 2. For further details and diet recommendations please refer to speechpathology report. Finalized by Sohail Chanel MD on 10/05/2023 9:55 AM Libby Becker MD IMG XR PROCEDURES Final Resul t documented in this encounter Visit Diagnoses Not on filedocumented in this encounter Care Teams Chief Drafter Relationship Specialty Start Date End Date Garth Rose MD [address] [place] [address] PCP - General Family Medicine 03/14/23 documented as of this encounter
[2025-03-21 08:27] VITALS: BP 116/75; PULSE 64; TEMP 36; O2SAT 99; BMI 21.4
[2025-03-21] MEDS: CIPROFLOXACIN HCL/DEXAMETH 0.3%/0.1% OTIC SUSP 150 DROP/7.5 ML BOTTLE OT (09:12)
[2025-03-21 09:18] VITALS: BP 95/59; PULSE 51; TEMP 36.1; O2SAT 96
[2025-03-21 09:33] VITALS: BP 98/60; PULSE 47; O2SAT 98
--- NOTE | 2025-03-21 09:37 | PC.NURSE ---
Mother sitting at bedside. Patient remains drowsy and sleeping but awakens with stimulation. Will monitor closely.
[2025-03-21 09:48] VITALS: BP 84/60; PULSE 64; O2SAT 98
[2025-03-21 10:13] VITALS: BP 103/59; PULSE 58; O2SAT 100
== END 2025-03-21 10:17 | disposition home or self-care (01) ==
LOC: SURGOUT 08:07
PROVIDERS: PCP Family Medicine; Visit Provider Otolaryngology
PROC: (CPT 124; principal; 2025-03-21 09:30)
DX: H61.23 Impacted cerumen, bilateral (principal); H73.11 Chronic myringitis, right ear; Q90.9 Down syndrome, unspecified; H69.91 Unspecified Eustachian tube disorder, right ear; R56.9 Unspecified convulsions; Q87.40 Marfan syndrome, unspecified; Z45.82 Encounter for adjustment or removal of myringotomy device (stent) (tube); D82.1 Di George's syndrome
CPT/HCPCS: 69209; J2250; J2704